=== PATIENT | female | born 1985 | race Caucasian/White ===

== ENCOUNTER 2019-10-21 16:06 | Emergency (ER) | payer OTHER, SELFPAY ==
--- NOTE | ~2019-10-21 | CT_ITS ---
EXAMINATION: CT brain wo con INDICATION: Dizziness and headache COMPARISON: None TECHNIQUE: Standard unenhanced head CT. The dose-length product (DLP) was 681.00 mGy-cm. The mA was a djusted according to patient size. Iterative reconstruction technique was employed. FINDINGS: There is no intracranial hemorrhage, acute infarction, or abnormal mass lesion. The ventric les are normal. There is no abnormal mass effect or midline shift. The barrett-white matter differentiat ion is normal. The basal cisterns are patent. The orbits are normal. The paranasal sinuses, mastoids and calvarium are normal. IMPRESSION: 1. No acute intracranial abnormality. Reviewed, dictated and finalized at location A.
[2019-10-21 16:08] VITALS: PULSE 102; RESP 14; TEMP 36; O2SAT 99
--- NOTE | 2019-10-21 16:09 | ED.DIZZY ---
HPI - Dizziness General Chief Complaint: Dizziness Stated Complaint: lightheaded Time Seen by Provider: 10/21/19 16:09 Source: patient Mode of arrival: ambulatory Limitations: no limitations History of Present Illness HPI Narrative: Patient is a 34-year-old female with a history of asthma, migraine headaches who presents for evaluation of various complaints. Patient reports migraine headache, intermittent chest tightness although none today, intermittent abdominal discomfort, although none today, nausea, and lightheadedness/dizziness with standing. Patient states that every time she stands up suddenly she feels as if she is going to pass out. She denies any actual syncope or loss of consciousness. She reports lately she has been diaphoretic and feeling weak. Patient attempted to make an appointment with her primary care physician, she does have follow-up tomorrow afternoon with her PCP. Patient denies dysuria or hematuria. No new medications. No recent travel. No leg swelling, calf pain, recent surgery or immobility. Related Data Allergies Allergy/AdvReac Type Severity Reaction Status Date / Time amoxicillin Allergy Unknown Anaphylactic Verified 10/21/19 16:11 Shock Penicillins Allergy Unknown Anaphylaxis Verified 10/21/19 16:11 Review of Systems Review of Systems: Narrative: CONSTITUTIONAL: Denies fever, chills, reports being diaphoretic EYES: Denies visual changes, redness, or discharge. ENT: Denies rhinorrhea, congestion, sore throat, or otalgia. CARDIOVASCULAR: Denies current chest pain, palpitations or edema RESPIRATORY: Denies cough or dyspnea. GASTROINTESTINAL: Denies current abdominal pain, reports intermittent abdominal cramping, reports nausea without vomiting GENITOURINARY: Denies dysuria or hematuria. SKIN: Denies rash or itching. MUSCULOSKELETAL: Denies back pain, joint pain, or myalgia. NEUROLOGIC: Reports mild headache, denies numbness, or weakness. Reports chronic pain in her left lower extremity due to crush injury. PSYCHIATRIC: Reports anxiety and depression PMF Past Medical History Medical History (Updated 10/21/19 @ 18:04 by Oliva Hogue MD) Asthma Migraine Surgical History Surgical History (Updated 10/21/19 @ 16:20 by Oliva Hogue MD) H/O bilateral breast reduction surgery H/O spinal fusion Family History Family History (Updated 09/07/11 @ 14:40 by DOCTOR UNKNOWN) Other Diabetes mellitus Social History Social History Smoking end date: 04/01/11 Alcohol intake: never Gender identity (if verbalized by the patient): Female Exam Narrative: Exam Narrative: GENERAL: Awake, alert, conversant HEAD: Normocephalic, atraumatic. EYES: PERRLA and EOMI. ENT: Nares clear, no rhinorrhea or epistaxis. Mucous membranes moist. NECK: Supple. CHEST: No respiratory distress, breathing even and non labored HEART: Regular rate, sinus rhythm ABDOMEN: Obese, non distended, non tender EXTREMITIES: Normal range of motion. No edema. SKIN: Warm, dry, no rash. NEURO:No focal deficits. Alert and oriented x3. Finger to nose intact bilaterally. EOMs intact without nystagmus. No facial droop/asymmetry noted bilaterally. Grimace intact. Intact sensation in face. Hearing intact bilaterally. Shoulder shrug intact. Strength 5/5 bilateral upper extremities. Strength 5/5 bilateral lower extremities. Reflexes 2+ patellar. Heel to rodríguez intact bilaterally. Ambulatory exam deferred. Course Vital Signs Vital signs: Vital Signs Temperature 36.0 C L 10/21/19 16:08 Pulse Rate 102 H 10/21/19 16:08 Respiratory Rate 14 10/21/19 16:08 Pulse Oximetry 99 10/21/19 16:08 Temperature 36.0 C L 10/21/19 16:08 Pulse Rate 102 H 10/21/19 16:08 Respiratory Rate 14 10/21/19 16:08 Pulse Oximetry 99 10/21/19 16:08 MDM - Dizziness MDM Narrative Medical decision making narrative: The patient was evaluated for dizziness. Based on neurological assessment and clinical symptoms, patient'
--- NOTE | 2019-10-21 16:12 | ECG_ITS ---
Measurements Intervals [place] Rate: 94 P: 56 ID: [id number] QRS: 49 QRSD: 81 T: 28 QT: 332 QTc: 416 Interpretive Statements SINUS RHYTHM BASELINE ARTIFACT- III, AVL, AVF NORMAL ECG Electronically Signed On 10-22-2019 8:00:14 CDT by Maximus Reilly D.O.
[2019-10-21] MEDS: SODIUM CHLORIDE 0.9% IV 1,000 ML 999 ML IV CONT (16:38)
[2019-10-21] MEDS: MECLIZINE HCL 25 MG TABLET PO (16:38)
[2019-10-21 16:41] LABS: Basophils Absolute Auto 0.1 K/mm3 (0.0-0.1); Basophils Percent Auto 0.6 % (0.2-1.2); Eosinophils Absolute Auto 0.2 K/mm3 (0-0.3); Eosinophils Percent Auto 1.8 % (0-4.4); Hematocrit 41.3 % (37.0-47.0); Hemoglobin 13.6 g/dL (12.0-15.0); Immature Granulocyte Absolute 0.02 K/mm3 (0.00-0.031); Immature Granulocyte Percent A 0.2 % (0-0.5); Lymphocytes Absolute Auto 2.75 K/mm3 (0.9-3.2); Lymphocytes Percent Auto 29.6 % (18.3-44.2); Mean Corpuscular HGB Conc 32.9 g/dl (32-36); Mean Corpuscular Hemoglobin 28.4 pg (26-34); Mean Corpuscular Volume 86.2 fl (80-100); Mean Platelet Volume 9.2 fl (7.4-10.4); Monocytes Absolute Auto 0.8 K/mm3 (0.1-0.6); Monocytes Percent Auto 8.1 % (2.6-8.5); Neutrophils Absolute Auto 5.5 K/mm3 (1.3-6.7); Neutrophils Percent Auto 59.7 % (45.5-73.1); Platelet Count Result 395 k/mm3 (150-375); Red Blood Count 4.79 M/mm3 (4.2-5.4); Red Cell Distribution Width 13.5 % (11.5-14.5); White Blood Count 9.3 K/mm3 (4.5-10.0)
[2019-10-21 16:51] LABS: Anion Gap 13.4 mmol/L (7-16); Blood Urea Nitrogen 20 mg/dL (7-17); Calcium 9.3 mg/dL (8.4-10.2); Carbon Dioxide 26 mmol/L (22-30); Chloride 104 mmol/L (98-107); Estimated CRCL calculation 159 ml/min; Estimated Glomerular Filt Rate > 60; Glucose 95 mg/dL (65-105); Potassium 4.4 mmol/L (3.4-5.0); Sodium 139 mmol/L (137-145)
[2019-10-21 17:02] LABS: Troponin I < 0.012 ng/mL (0.000-0.034)
[2019-10-21 17:05] LABS: INR 0.9; Partial Thromboplastin Time 25.2 SECONDS (22.3-36.8)
[2019-10-21 17:08] LABS: D Dimer 0.44 ug/mL (<0.48)
[2019-10-21 17:15] VITALS: BP 157/110; PULSE 96; RESP 20; O2SAT 99
[2019-10-21 17:23] LABS: Add Urine Microscopic? YES; Appearance Urine Cloudy (Clear); Bacteria Urine Trace /hpf; Bilirubin Urine Negative (Negative); Blood Urine Negative (Negative); Color Urine Yellow (Yellow); Glucose Urine UA Negative (Negative); Ketones Urine Negative (Negative); Leukocyte Esterase Ur Trace LEU/UL (Negative); Mucus Urine Rare /lpf; Nitrate Urine Negative (Negative); Protein Urine Negative (Negative); RBC Urine 0-2 /hpf (0-2); Specific Grav Ur 1.015 (1.001-1.035); Squamous Epithelial Cell Urine Few /hpf (Few); Urobilinogen Urine Negative mg/dL (<2.0)
[2019-10-21] MEDS: diphenhydrAMINE HCl INJ 50 MG/ML VIAL 25 MG IV PUSH (17:38)
[2019-10-21] MEDS: METOCLOPRAMIDE HCL INJ 10 MG/2 ML VIAL IV PUSH (17:38)
[2019-10-21] MEDS: KETOROLAC 15 MG/ML VIAL (*BKC) IV PUSH (17:39)
[2019-10-21 18:13] VITALS: BP 141/93; PULSE 88; RESP 20; O2SAT 99
== END 2019-10-21 18:14 | disposition home or self-care (01) ==
PROVIDERS: Emergency Provider Emergency Medicine; PCP Nurse Practitioner Adult Health
DX: G43.009 Migraine without aura, not intractable, without status migrainosus (principal)
CPT/HCPCS: 36415; 70450; 80048; 81001; 84484; 85025; 85380; 85610; 85730; 93005; 96361; 96374; 96375; 99284; A9270; J0131; J1100; J1200; J1885; J2765; J7030

== ENCOUNTER 2019-11-05 17:03 | Emergency (ER) | payer OTHER, SELFPAY ==
--- NOTE | ~2019-11-05 | XR_ITS ---
EXAMINATION: XR chest 2V EXAM DATE: 11/05/2019 17:34 INDICATION: Mid chest pain, dizziness, blurry vision, hypertension. TECHNIQUE: Frontal and lateral projections of the chest obtained and reviewed. There is no prior margo dy for comparison. FINDINGS: The lungs are clear. There are no pleural effusions. The cardiomediastinal silhouette is within normal limits. There is no pneumothorax suspected. The bones and soft tissues are unremarkab le. There are cholecystectomy clips. IMPRESSION: Normal chest x-ray exam. Reviewed, dictated and finalized at location A. IMPRESSION: Normal chest x-ray exam.
[2019-11-05 16:59] VITALS: BP 147/83; PULSE 108; RESP 26; TEMP 36.6; O2SAT 99
--- NOTE | 2019-11-05 17:16 | ECG_ITS ---
Measurements Intervals [place] Rate: 106 P: 17 [place]: 159 QRS: 34 QRSD: 76 T: -4 QT: 282 QTc: 375 Interpretive Statements SINUS TACHYCARDIA NONSPECIFIC T-WAVE ABNORMALITY- ANTEROLAT/INF LEADS ABNORMAL ECG Electronically Signed On 11-05-2019 21:21:24 CDT by Maximus Reilly D.O.
--- NOTE | 2019-11-05 17:24 | PC.NURSE ---
Pt to xray
[2019-11-05 18:00] LABS: Basophils Absolute Auto 0.1 K/mm3 (0.0-0.1); Basophils Percent Auto 0.5 % (0.2-1.2); Eosinophils Absolute Auto 0.1 K/mm3 (0-0.3); Eosinophils Percent Auto 1.1 % (0-4.4); Hematocrit 37.9 % (37.0-47.0); Hemoglobin 12.6 g/dL (12.0-15.0); Immature Granulocyte Absolute 0.04 K/mm3 (0.00-0.031); Immature Granulocyte Percent A 0.3 % (0-0.5); Lymphocytes Percent Auto 26.8 % (18.3-44.2); Mean Corpuscular HGB Conc 33.2 g/dl (32-36); Mean Corpuscular Hemoglobin 28.5 pg (26-34); Mean Corpuscular Volume 85.7 fl (80-100); Mean Platelet Volume 9.3 fl (7.4-10.4); Monocytes Absolute Auto 0.7 K/mm3 (0.1-0.6); Monocytes Percent Auto 5.6 % (2.6-8.5); Neutrophils Absolute Auto 7.8 K/mm3 (1.3-6.7); Neutrophils Percent Auto 65.7 % (45.5-73.1); Platelet Count Result 378 k/mm3 (150-375); Red Blood Count 4.42 M/mm3 (4.2-5.4); Red Cell Distribution Width 13.6 % (11.5-14.5); White Blood Count 11.9 K/mm3 (4.5-10.0)
[2019-11-05 18:09] LABS: INR 1.1; Prothrombin Time 13.6 Seconds (11.1-14.7)
[2019-11-05 18:10] LABS: Partial Thromboplastin Time 25.4 SECONDS (22.3-36.8)
[2019-11-05 18:12] LABS: Blood Urea Nitrogen 26 mg/dL (7-17); Calcium 9.4 mg/dL (8.4-10.2); Carbon Dioxide 26 mmol/L (22-30); Chloride 102 mmol/L (98-107); Estimated CRCL calculation 136 ml/min; Estimated Glomerular Filt Rate > 60; Glucose 93 mg/dL (65-105); Sodium 136 mmol/L (137-145)
[2019-11-05 18:24] LABS: Troponin I < 0.012 ng/mL (0.000-0.034)
[2019-11-05 18:46] VITALS: BP 126/81; PULSE 96; RESP 15; O2SAT 99
--- NOTE | 2019-11-05 18:53 | PC.NURSE ---
Spoke with EDP about seeing patient due to time in ED without having EDP sign up.
[2019-11-05 19:19] LABS: D Dimer 0.37 ug/mL (<0.48)
--- NOTE | 2019-11-05 19:38 | ED.GENADULT ---
HPI - General Adult General Chief complaint: Chest Pain Stated complaint: CP Time Seen by Provider: 11/05/19 18:52 Source: patient History of Present Illness HPI narrative: Patient is a 34 y/o female complaining of left sided chest pain starting approximately 10-11 hours ago. She describes her chest pain as sharp with radiation to her back. She rates her pain as 5/10. She states that Nitro helped her pain slightly. She has no SOB, cough or fever. She has some bilateral frontal headache starting 8 hours ago. Related Data Home Medications Medication Instructions Recorded Confirmed amitriptyline 11/05/19 atorvastatin 10 mg PO HS 11/05/19 citalopram mg 11/05/19 ergocalciferol (vitamin D2) 11/05/19 lisinopril 20 mg PO DAILY 11/05/19 methocarbamol 750 mg PO TID 11/05/19 naproxen 500 mg PO BID PRN 11/05/19 ondansetron 4 mg PO Q8H 11/05/19 phentermine 37.5 mg PO DAILY 11/05/19 trazodone 50 mg PO HS 11/05/19 Allergies Allergy/AdvReac Type Severity Reaction Status Date / Time amoxicillin Allergy Unknown Anaphylactic Verified 11/05/19 17:06 Shock Penicillins Allergy Unknown Anaphylaxis Verified 11/05/19 17:06 Review of Systems Constitutional: Constitutional: Denies chills, Denies fever(s), Reports headache(s) and Denies weakness Eyes: Eyes: Reports blurry vision ENT: Reports headache(s) and Denies neck pain Cardiovascular: Cardiovascular: Reports chest pain and Denies dyspnea Respiratory: Respiratory: Denies cough and Denies dyspnea Gastrointestinal: Gastrointestinal: Denies abdominal pain, Denies diarrhea, Denies nausea and Denies vomiting Genitourinary: Genitourinary: Denies hematuria and Denies dysuria Musculoskeletal: Musculoskeletal: Denies back pain and Denies neck pain Neurologic: Reports headache(s) and Denies weakness PMFSH Past Medical History Medical History Asthma Migraine Surgical History Surgical History H/O bilateral breast reduction surgery H/O spinal fusion Family History Family History Other Diabetes mellitus Social History Social History Smoking end date: 04/01/11 Alcohol intake: never Gender identity (if verbalized by the patient): Female Exam Const: General: no acute distress and well developed Orientation/consciousness: oriented to person, oriented to place, oriented to time and patient oriented x3 HENMT: Head: normocephalic Ears: external ears normal General nose exam: Normal external nose present Eyes: General: appearance normal, both eyes and all related structures Conjunctivae: conjunctivae normal Neck: Neck: normal visual inspection and full ROM Chest: Chest palpation & inspection: normal inspection of the chest and no tenderness Resp: Effort & Inspection: normal respiratory effort Auscultation: clear to auscultation bilaterally Cardio: Rate: regular rate Rhythm: regular rhythm GI: GI Palp: No abdominal tenderness and Yes Soft to palpation Skin: General skin exam: normal color and turgor normal Neuro: General: oriented to person, oriented to place, oriented to time and patient oriented x3 Cranial nerves: Yes CN's II-XII intact bilaterally Cognition (Neuro): normal cognition Speech: normal speech Motor exam (neuro): 5/5 motor strength present throughout Sensory Exam: normal sensation Coordination: [id number] test normal and [id number] test normal Extrem: General: normal to inspection, full ROM and no pedal edema Psych: Appearance: grossly normal Mental Status: mental status grossly normal Affect: normal affect Course Reevaluation(s) Reevaluation #1: Rechecked. Chest pain and headache has both improved. Date: 11/05/19 Vital Signs Vital signs: Vital Signs Temperature 36.6 C 11/05/19 16:59 Pulse Rate 108 H 0
[2019-11-05] MEDS: diphenhydrAMINE HCl INJ 50 MG/ML VIAL 25 MG IV PUSH (19:48)
[2019-11-05] MEDS: METOCLOPRAMIDE HCL INJ 10 MG/2 ML VIAL IV PUSH (19:48)
[2019-11-05 20:44] LABS: Troponin I < 0.012 ng/mL (0.000-0.034)
[2019-11-05 20:59] LABS: Add Urine Microscopic? YES; Appearance Urine Cloudy (Clear); Bacteria Urine 2+ /hpf; Bilirubin Urine 1+ (Negative); Blood Urine Negative (Negative); Color Urine Yellow (Yellow); Glucose Urine UA Negative (Negative); Ketones Urine Negative (Negative); Leukocyte Esterase Ur Negative LEU/UL (Negative); Mucus Urine Rare /lpf; Nitrate Urine Negative (Negative); Protein Urine Negative (Negative); Specific Grav Ur 1.032 (1.001-1.035); Squamous Epithelial Cell Urine Many /hpf (Few); Urobilinogen Urine Negative mg/dL (<2.0); WBC Urine 0-3 /hpf
[2019-11-05 21:24] VITALS: BP 132/76; PULSE 92; RESP 13; O2SAT 100
[2019-11-05] MEDS: KETOROLAC 30 MG/ML VIAL (*BKC) IV PUSH (22:17)
[2019-11-05 22:20] VITALS: BP 162/89; PULSE 88; O2SAT 98
[2019-11-05 23:22] VITALS: BP 169/87; PULSE 93; RESP 12; O2SAT 100
== END 2019-11-05 23:23 | disposition home or self-care (01) ==
PROVIDERS: Emergency Medicine; Emergency Provider Emergency Medicine; PCP Nurse Practitioner Adult Health
DX: R07.9 Chest pain, unspecified (principal); I10 Essential (primary) hypertension; R51 Headache; J45.909 Unspecified asthma, uncomplicated; Z98.1 Arthrodesis status; R00.0 Tachycardia, unspecified; R94.31 Abnormal electrocardiogram [ECG] [EKG]
CPT/HCPCS: 36415; 71046; 80048; 81001; 81025; 84484; 85025; 85380; 85610; 85730; 93005; 96374; 96375; 99284; J1200; J1885; J2765

== ENCOUNTER 2020-01-15 18:18 | Inpatient (IN) | payer OTHER, SELFPAY ==
[2020-01-15] VITALS (17 sets, daily range): BP systolic 125–153; BP diastolic 72–86; PULSE 89–119; RESP 17–24; TEMP 36.3–37.1; O2SAT 97–100; BMI 45.3
--- NOTE | ~2020-01-15 | CT_ITS ---
EXAMINATION: CT abdomen pelvis w con EXAM DATE: 01/15/2020 21:07 INDICATION: Low abdominal pain with vaginal bleeding. Postoperative, hysterectomy. TECHNIQUE: Spiral CT of the abdomen and pelvis was performed following intravenous injection of 100 m L Omnipaque 350. Axial, coronal and sagittal images were reviewed. The dose-length product (DLP) fo r this examination was 1678.71 mGy-cm. The exposure was tailored according to patient size (auto mA exposure control), and iterative reconstruction (ASIR) was used as additional dose reduction techniqu e. There is no prior study for comparison. FINDINGS: In the pelvis, hysterectomy bed there is complex fluid collection with air-fluid level willie uring 14 cm in diameter. Portions of this insinuate higher up into the abdomen and also have organize d appearing wall. Appearance is most consistent with abscess. Would be accessible for percutaneous d rainage. There is hepatic steatosis without suspicious focal lesion identified. Spleen, adrenal glands, pancre as are unremarkable. Gallbladder is unremarkable. No biliary obstruction. Portal and splenic veins are patent. Kidneys enhance symmetrically. There is no hydronephrosis. There is no retroperiton eal or pelvic lymphadenopathy. The appendix is not positively visualized. There is no pericecal inflammatory change to suggest appe ndicitis. The stomach and small bowel are unremarkable. There is expected amount of colonic stool. No free intraperitoneal gas. The heart is normal in size. There are no pericardial or pleural e ffusions. There is linear bibasilar subsegmental atelectasis. There are no osteoblastic or osteolyt ic lesions identified. Surgical changes L5-S1. IMPRESSION: Large pelvic complex fluid collection with additional regions extending into the abdomen, appearance consistent with abscess. Recommend surgical consult. Reviewed, dictated and finalized at location A. IMPRESSION: Large pelvic complex fluid collection with additional regions exten ding into the abdomen, appearance consistent with abscess. Recommend surgical c onsult.
--- NOTE | ~2020-01-15 | CT_ITS ---
EXAMINATION: CT guide absc cath placement DATE: 01/16/2020 11:31 INDICATION: Pelvic abscess. TECHNIQUE: The procedure including the risks, benefits, and alternatives was discussed with the patie nt. Risks discussed included bleeding and infection. The patient understood the risks and benefits an d agreed to proceed. The skin overlying the abdomen was prepped and draped in usual sterile fashion. Anesthetic was administered with 1% lidocaine subcutaneously. An 18 gauge trochar needle was inserte d into the pelvic abscess with CT guidance. The needle was exchanged over a wire for 6 Luxembourger, 8 Fren ch, and 10 Luxembourger dilators and then for a 10 Luxembourger pigtail catheter. The catheter was stitched to th e skin, and a sterile dressing was applied. The mA was adjusted according to patient size. Iterative reconstruction technique was employed. The dose-length product was 249.20 mGy-cm. There were no immed iate complications. FINDINGS: CT images demonstrate the catheter within the fluid collection. 15 mL fluid was aspirated f or testing. IMPRESSION: 1. Successful CT-guided pelvic abscess drainage. 2. 15 mL opaque, red, foul-smelling fluid was sent for aerobic and anaerobic cultures. Reviewed, dictated and finalized at location A. IMPRESSION: 1. Successful CT-guided pelvic abscess drainage. 2. 15 mL opaque, red, foul-smelling fluid was sent for aerobic and anaerobic cu ltures.
--- NOTE | ~2020-01-15 | US_ITS ---
EXAMINATION: US_ABSCYSTIMG_US DATE: 01/21/2020 12:26 INDICATION: Right abdominal wall subcutaneous abscess. TECHNIQUE: The procedure including the risks, benefits, and alternatives was discussed with the patie nt. Risks discussed included bleeding and infection. The patient understood the risks and agreed to p roceed. The skin overlying the right abdomen was prepped and draped in usual sterile fashion. Anesth etic was administered with 1% lidocaine subcutaneously. An 18 gauge spinal needle was then used to a spirate the abscess under continuous sonographic guidance. The entry site was cleaned and dressed. T here were no immediate complications. FINDINGS: Ultrasound images demonstrate the needle in a 3.9 x 1.0 cm hypoechoic subcutaneous mass in the right abdomen, consistent with abscess. IMPRESSION: 1. Ultrasound-guided aspiration of a small abscess in the subcutaneous fat of right anterior abdomina l wall yielding 1 mL opaque, vela-red fluid. The fluid was sent for aerobic and anaerobic cultures. Reviewed, dictated and finalized at location A. IMPRESSION: 1. Ultrasound-guided aspiration of a small abscess in the subcutaneous fat of r ight anterior abdominal wall yielding 1 mL opaque, vela-red fluid. The fluid was sent for aerobic and anaerobic cultures.
--- NOTE | ~2020-01-15 | CT_ITS ---
EXAMINATION: CT abdomen pelvis w con DATE: 01/20/2020 08:04 INDICATION: Worsening right lower quadrant abdominal pain. Known pelvic abscess. TECHNIQUE: Computed tomography (CT) of the abdomen and pelvis was performed with 100 cc Omnipaque 350 intravenous contrast. The dose-length product was 1695.57 mGy-cm. Automated exposure control and ite rative reconstruction technique were employed. COMPARISON: CT dated 01/15/2020 FINDINGS: New small right pleural effusion. There is bibasilar atelectasis heart size normal. Fatty i nfiltration of the liver. The spleen, pancreas, adrenal glands and kidneys are unremarkable. Nonobstr uctive bowel gas pattern. In the pelvis there is a complex fluid collection measuring 9.6 x 7.5 cm co mpared with 14.5 x 10.2 cm on prior examination. There is a percutaneous drainage catheter in the flu id collection. This irregular fluid collection extends superiorly with fingerlike projections. There is moderate infiltration of the subcutaneous fat is well with interval development of fluid collectio n in the anterior abdominal wall measuring 5.1 x 2.2 cm, image 118, likely abscess. IMPRESSION: 1. Improved pelvic abscess postdrainage placement now measuring 9.6 x 7.5 cm transverse dimension. 2: No small abscess anterior abdominal wall paracentral to the right measuring 5.1 x 2.2 cm. 3: New small right pleural effusion. Bibasilar atelectasis. Reviewed, dictated and finalized at location B. IMPRESSION: 1. Improved pelvic abscess postdrainage placement now measuring 9.6 x 7.5 cm tr ansverse dimension. 2: No small abscess anterior abdominal wall paracentral to the right measuring 5.1 x 2.2 cm. 3: New small right pleural effusion. Bibasilar atelectasis.
[2020-01-15 18:55] LABS: Hematocrit 24.9 % (37.0-47.0); Hemoglobin 8.1 g/dL (12.0-15.0); Mean Corpuscular HGB Conc 32.5 g/dl (32-36); Mean Corpuscular Hemoglobin 28.1 pg (26-34); Mean Corpuscular Volume 86.5 fl (80-100); Mean Platelet Volume 9.4 fl (7.4-10.4); Platelet Count Result 851 k/mm3 (150-375); Red Blood Count 2.88 M/mm3 (4.2-5.4); Red Cell Distribution Width 14.8 % (11.5-14.5); White Blood Count 23.1 K/mm3 (4.5-10.0)
--- NOTE | 2020-01-15 19:15 | ED.ABDPAIN ---
HPI - Abdominal Pain General Chief Complaint: Vaginal Bleeding Stated Complaint: VAGINAL BLEEDING, POST HYSTERECTOMY Time Seen by Provider: 01/15/20 19:05 Source: patient and family Mode of arrival: ambulatory Limitations: no limitations History of Present Illness HPI narrative: Patient is a 34-year-old female with a history of recent hysterectomy, approximately 2 weeks ago, performed by Dr. Cervantes, who presents for evaluation of vaginal bleeding, foul-smelling discharge, generalized abdominal pain. Patient states she had a large gush of malodorous fluid, vaginal bleeding this afternoon around 4 PM. Patient states she has some general malaise, no focal weakness, no severe abdominal pain, reports some generalized discomfort in the lower abdomen. Patient denies fever, chills, rhinorrhea, cough, chest pain or shortness of breath. No nausea or vomiting. Patient states she had been doing well post surgery up until today. Incisions are healing well. She denies any dysuria. Related Data Home Medications Medication Instructions Recorded Confirmed amitriptyline 11/05/19 atorvastatin 10 mg PO HS 11/05/19 citalopram mg 11/05/19 ergocalciferol (vitamin D2) 11/05/19 lisinopril 20 mg PO DAILY 11/05/19 methocarbamol 750 mg PO TID 11/05/19 naproxen 500 mg PO BID PRN 11/05/19 ondansetron 4 mg PO Q8H 11/05/19 phentermine 37.5 mg PO DAILY 11/05/19 trazodone 50 mg PO HS 11/05/19 Allergies Allergy/AdvReac Type Severity Reaction Status Date / Time amoxicillin Allergy Unknown Anaphylactic Verified 11/05/19 17:06 Shock Penicillins Allergy Unknown Anaphylaxis Verified 11/05/19 17:06 Review of Systems Review of Systems: Narrative: CONSTITUTIONAL: Denies fever, chills, or sweats. EYES: Denies visual changes ENT: Denies rhinorrhea, congestion, sore throat, or otalgia. CARDIOVASCULAR: Denies chest pain, palpitations, or edema. RESPIRATORY: Denies cough or dyspnea. GASTROINTESTINAL: Reports generalized lower abdominal pain GENITOURINARY: Denies dysuria or hematuria. Reports vaginal bleeding and malodorous discharge SKIN: Denies rash or itching. MUSCULOSKELETAL: Denies back pain NEUROLOGIC: Denies headache, numbness, or weakness. [facility] Past Medical History Medical History (Updated 01/15/20 @ 21:35 by Oliva Hogue MD) Asthma Migraine Surgical History Surgical History (Updated 01/15/20 @ 19:42 by Oliva Hogue MD) H/O bilateral breast reduction surgery H/O spinal fusion History of hysterectomy Family History Family History Other Diabetes mellitus Social History Social History Smoking end date: 04/01/11 Alcohol intake: never Gender identity (if verbalized by the patient): Female Exam Narrative: Exam Narrative: GENERAL: Awake, alert, conversant HEAD: Normocephalic, atraumatic. EYES: PERRLA and EOMI. ENT: Nares clear, no rhinorrhea or epistaxis. Mucous membranes moist. NECK: Supple. CHEST: No respiratory distress, breathing even and non labored HEART: Regular rate, sinus rhythm ABDOMEN: Obese, non distended, incision sites clean, dry, intact mild tenderness in the lower abdomen, no distention, no rebound, no guarding, nonrigid Pelvic: Labia majora and minora normal without lesions. Vagina with blood, no brisk bleeding or large bloot clot. Malodorus smell. No purulent discharge identified on exam. EXTREMITIES: Normal range of motion. No edema. SKIN: Warm, dry, no rash. NEURO:No focal deficits. Alert and oriented x3 Course Vital Signs Vital signs: Vital Signs Temperature 36.7 C 01/15/20 18:23 Pulse Rate 118 H 01/15/20 18:23 Respiratory Rate 20 01/15/20 18:23 Blood Pressure 129/72 01/15/20 18:23 Pulse Oximetry 100 01/15/20 18:23 Temperature 36.7 C 01/15/20 18:23 Pulse Rate 113 H 01/15/20 20:45 Respiratory Rate 24 H 01/15/20 20:15 Blood Pressure 128/86 10
[2020-01-15 19:16] LABS: Band Neutrophils Percent 1 % (0-6); Monocytes Absolute Manual 1.15 K/mm3 (0.1-0.90); Monocytes Percent Manual 5 % (3-9); Neutrophils Absolute Manual 18.94 K/mm3 (1.7-7.2); Neutrophils Percent Manual 81 % (46-73); Total Cells Counted 100
[2020-01-15 19:17] LABS: Hypochromasia 1+ (NORMAL); Platelet Estimate Increased (Adequate)
--- NOTE | 2020-01-15 19:20 | PC.NURSE ---
patient here with vaginal bleeding after partial hysterectomy on 01/04/20. has been healing well until this afternoon. has used 4 large sized pads per patient. appears pale. denies dizziness, syncope or near syncope. SO present in room. assessments documented. labs already drawn. SL inserted. additional blood drawn. patient on media monitor. call light in reach.
[2020-01-15 19:23] LABS: INR 1.1; Prothrombin Time 13.5 Seconds (11.1-14.7)
[2020-01-15 19:24] LABS: Partial Thromboplastin Time 36.4 SECONDS (22.3-36.8)
[2020-01-15 19:53] LABS: Add Urine Microscopic? YES; Appearance Urine Cloudy (Clear); Bacteria Urine Trace /hpf; Bilirubin Urine Negative (Negative); Blood Urine 3+ (Negative); Color Urine Amber (Yellow); Glucose Urine UA Negative (Negative); Ketones Urine Negative (Negative); Leukocyte Esterase Ur 2+ LEU/UL (Negative); Mucus Urine Rare /lpf; Nitrate Urine Positive (Negative); Protein Urine 1+ mg/dL (Negative); Specific Grav Ur 1.013 (1.001-1.035); Squamous Epithelial Cell Urine Moderate /hpf (Few); Urobilinogen Urine Negative mg/dL (<2.0); WBC Clumps Urine Present /HPF; WBC Urine 51-75 /hpf
[2020-01-15 20:28] LABS: INR 1.2; Prothrombin Time 14.7 Seconds (11.1-14.7)
[2020-01-15] MEDS: metroNIDAZOLE 500 MG/ISO 100ML 500 MG/100 ML BAG 100 MG IVPB (20:35)
[2020-01-15 20:47] LABS: Lactic Acid Reflex 2.4 mmol/L (0.7-2.1)
[2020-01-15 20:48] LABS: Potassium 3.1 mmol/L (3.4-5.0)
[2020-01-15] MEDS: MORPHINE SULFATE (*CRX) 4 MG/ML INJ IV PUSH ×2 (20:50→23:20)
[2020-01-15 20:51] LABS: Alanine Aminotransferase 23 U/L (4-35); Albumin Level 3.4 g/dL (3.5-5.1); Alkaline Phosphatase 145 U/L (38-126); Anion Gap 11 mmol/L (8-16); Aspartate Amino Transferase 35 U/L (14-36); Bilirubin,Total 0.6 mg/dL (0.2-1.3); Blood Urea Nitrogen 24 mg/dL (7-17); Calcium 8.9 mg/dL (8.4-10.2); Carbon Dioxide 30 mmol/L (22-30); Chloride 97 mmol/L (98-107); Estimated CRCL calculation 99 ml/min; Estimated Glomerular Filt Rate > 60; Glucose 96 mg/dL (65-105); Sodium 138 mmol/L (137-145)
--- NOTE | 2020-01-15 20:57 | PC.NURSE ---
Patient being taken to CT.
[2020-01-15 21:40] LABS: Troponin I < 0.012 ng/mL (0.000-0.034)
[2020-01-15] MEDS: CLINDAMYCIN 900 MG/NS 50 ML 900 MG/50 ML PIGGYBACK 50 MG IVPB (22:07)
[2020-01-15] MEDS: AZTREONAM 1 GM in DEXTROSE 5% IN WATER 50 ML IVPB (22:07)
--- NOTE | 2020-01-15 23:30 | PC.NURSE ---
This patient, Kit Cleveland, was admitted to IMU Room 209-01 on 01/15/20 at 2252. Patient/family oriented to hospital policies and general routines including ID bracelet, bed and alarms, visiting hours, pain management, procedures, bathroom and other care routines, personal items, smoking policy, room service/diet, and visiting hours. Information on how to activate the Rapid Response Team has been discussed. Patient/Family are encouraged to report perceived risks to care and to ask questions if they do not understand what they are told or what they should do.
[2020-01-15 23:35] LABS: Reflex Lactic Acid Yes or No Add Lactic
[2020-01-16] VITALS (26 sets, daily range): BP systolic 107–150; BP diastolic 56–95; PULSE 90–119; RESP 17–24; TEMP 36.2–37.3; O2SAT 95–100
[2020-01-16] MEDS: SODIUM CHLORIDE 0.9% IV 1,000 ML 125 ML IV CONT ×2 (00:22→13:46)
[2020-01-16] MEDS: metroNIDAZOLE 500 MG/ISO 100ML 500 MG/100 ML BAG 100 MG IVPB ×3 (00:28→17:35)
[2020-01-16 00:35] LABS: Lactic Acid 2.7 mmol/L (0.7-2.1)
[2020-01-16] MEDS: MORPHINE SULFATE (*CRX) 4 MG/ML INJ IV PUSH ×2 (01:31→03:48)
--- NOTE | 2020-01-16 02:59 | PM.IMCN ---
Assessment and Plan Assessment and plan (1) Postoperative abscess: Code(s): T81.49XA - Infection following a procedure, other surgical site, initial encounter Status: Acute Assessment and Plan: Antibiotics per OBGYN. Cultures are pending. Her but her vital signs are stable at this time. Her lactic was mildly elevated. Will recheck again this morning. She has IV fluids going at this time. Patient is NPO for possible surgery for the abscess later on today. (2) HTN (hypertension) with goal to be determined: Code(s): I10 - Essential (primary) hypertension Status: Chronic Assessment and Plan: Her blood pressure is 107/65 at this time. Holding hydrochlorothiazide and lisinopril. Re-evaluate tomorrow or later on today. (3) Hyperlipidemia: Code(s): E78.5 - Hyperlipidemia, unspecified Status: Chronic Assessment and Plan: I am holding her Atorvastatin at this time. (4) Depression with anxiety: Code(s): F41.8 - Other specified anxiety disorders Status: Chronic Assessment and Plan: Continue with amitriptyline and citalopram. P.r.n. Ativan. (5) Insomnia: Code(s): G47.00 - Insomnia, unspecified Status: Chronic Assessment and Plan: She takes amitriptyline at night to help her sleep. She also has p.r.n. Ativan. (6) Anemia: Code(s): D64.9 - Anemia, unspecified Status: Acute Assessment and Plan: she has been typed and cross- Matched. It looks like in October her hemoglobin was 12.6 now she is 8.1. Transfuse when appropriate. repeat her CBC her shortly. (7) Hypokalemia: Code(s): E87.6 - Hypokalemia Status: Acute Assessment and Plan: Replace potassium as needed. I did order dose for her. HPI Data of Consult Consult date: 01/16/20 Requesting Physician: Kirsten Cervantes MD Primary Care Provider: Natalia Rodrigues, INTEL ANALYST Consult Narrative Narrative: Kit Cleveland is a 34 year old female Who had a hysterectomy approximately 2 weeks ago. The patient stated that she started to notice a foul smell yesterday. She otherwise she had had any problems. Her incisions on her abdomen are without any drainage in the ER well approximated and healing. The patient stated that she sat on the toilet this afternoon when she felt something inside of her pop like a bubble and had all this foul-smelling drainage James out. Patient stated that the drainage has been leaking down her leg. She has had some general malaise but no focal weakness she has been having some abdominal pain. She said when the drainage for started she felt like someone stabbed her deep inside of her. Patient is having some mild discomfort. So she came to the emergency room to be evaluated. Her OBGYN was consulted. We are asked to consult the patient due to possible sepsis. She is afebrile and her heart rate and was in the 1 teens. So she is admitted to the step-down unit IMU. She was given 30 mils per kg fluid bolus for the sepsis. Blood cultures were obtained. She was not hypotensive. The patient was given aztreonam and clindamycin. It looks like she was also given Levaquin and Flagyl in the emergency room as well. She was given morphine for the discomfort. She was also given doxycycline there was no signs and symptoms of hemorrhagic shock. Her OBGYN was notified Dr. Cervantes and the patient was to be made NPO for possible surgery tomorrow I was consulted to monitor the patient overnight her H&H was 8.1 and 24.9. Her white count 23.1. Potassium 3.1. Her lactic was 2.4 and then 2.7. Urine was positive for UTI. Although this could be a contaminant because her moderate amount of squamous epithelial cells. She was negative for Trichomonas. Patient was admitted inpatient for postop infection. Date of consult is 01/16/2020 Review of Systems Review of Systems: All systems reviewed & are unremarkable except as noted in HPI and be
[2020-01-16] MEDS: AMITRIPTYLINE HCL 25 MG TABLET 50 MG PO ×4 (03:44→20:16)
[2020-01-16] MEDS: CITALOPRAM HYDROBROMIDE 20 MG TABLET 40 MG PO ×2 (03:45→20:16)
[2020-01-16] MEDS: traZODone HCL 50 MG TABLET 100 MG PO ×2 (03:45→20:17)
[2020-01-16] MEDS: LORazepam INJ (*CRX) 2 MG/ML VIAL 0.5 MG IV PUSH (03:57)
[2020-01-16 05:20] LABS: Basophils Absolute Auto 0.1 K/mm3 (0.0-0.1); Basophils Percent Auto 0.3 % (0.2-1.2); Eosinophils Absolute Auto 0.4 K/mm3 (0-0.3); Eosinophils Percent Auto 2.1 % (0-4.4); Hematocrit 22.7 % (37.0-47.0); Hemoglobin 7.2 g/dL (12.0-15.0); Immature Granulocyte Absolute 0.39 K/mm3 (0.00-0.031); Immature Granulocyte Percent A 2.2 % (0-0.5); Lymphocytes Absolute Auto 2.02 K/mm3 (0.9-3.2); Lymphocytes Percent Auto 11.6 % (18.3-44.2); Mean Corpuscular HGB Conc 31.7 g/dl (32-36); Mean Corpuscular Hemoglobin 27.8 pg (26-34); Mean Corpuscular Volume 87.6 fl (80-100); Mean Platelet Volume 9.2 fl (7.4-10.4); Monocytes Absolute Auto 0.9 K/mm3 (0.1-0.6); Monocytes Percent Auto 4.9 % (2.6-8.5); Neutrophils Absolute Auto 13.7 K/mm3 (1.3-6.7); Neutrophils Percent Auto 78.9 % (45.5-73.1); Nucleated Red Blood Cells Perc 0.2 % (0.0-0.2); Platelet Count Result 810 k/mm3 (150-375); Red Blood Count 2.59 M/mm3 (4.2-5.4); White Blood Count 17.4 K/mm3 (4.5-10.0)
[2020-01-16 05:29] LABS: INR 1.2; Prothrombin Time 15.3 Seconds (11.1-14.7)
[2020-01-16 05:30] LABS: Partial Thromboplastin Time 39.3 SECONDS (22.3-36.8)
[2020-01-16] MEDS: AZTREONAM 1 GM in SODIUM CHLORIDE 0.9% IV 50 ML 100 ML IVPB ×3 (05:35→21:27)
[2020-01-16] MEDS: CLINDAMYCIN 900 MG/NS 50 ML 900 MG/50 ML PIGGYBACK 50 MG IVPB ×3 (05:35→21:27)
[2020-01-16 05:54] LABS: Alanine Aminotransferase 19 U/L (4-35); Alkaline Phosphatase 129 U/L (38-126); Anion Gap 7 mmol/L (8-16); Aspartate Amino Transferase 34 U/L (14-36); Bilirubin,Total 0.5 mg/dL (0.2-1.3); Blood Urea Nitrogen 16 mg/dL (7-17); Calcium 7.9 mg/dL (8.4-10.2); Carbon Dioxide 30 mmol/L (22-30); Chloride 100 mmol/L (98-107); Estimated CRCL calculation 111 ml/min; Estimated Glomerular Filt Rate > 60; Glucose 97 mg/dL (65-105); Magnesium 1.9 mg/dL (1.6-2.3); Sodium 137 mmol/L (137-145)
--- NOTE | 2020-01-16 07:50 | PM.IMPN ---
Progress Note: A&P Assessment and Plan (1) Hypokalemia: Code(s): E87.6 - Hypokalemia Status: Acute Assessment and Plan: Will replace as needed. Continue to monitor. Daily BMP. (2) Anemia: Qualifiers: Anemia type: other cause Other causes of anemia: acute posthemorrhagic Qualified Code(s): D62 - Acute posthemorrhagic anemia Code(s): D64.9 - Anemia, unspecified Status: Acute Assessment and Plan: Will transfuse as needed. Continue to monitor. H&H (3) Chronic back pain: Code(s): M54.9 - Dorsalgia, unspecified; G89.29 - Other chronic pain Status: Chronic Assessment and Plan: Pain management. (4) Hyperlipidemia: Code(s): E78.5 - Hyperlipidemia, unspecified Status: Chronic Assessment and Plan: Diet and lifestyle modifications. (5) HTN (hypertension) with goal to be determined: Code(s): I10 - Essential (primary) hypertension Status: Chronic Assessment and Plan: Continue to monitor On HZTC and Lisinopril at home. (6) Sepsis: Qualifiers: Sepsis acute organ dysfunction status: unspecified Sepsis type: sepsis due to unspecified organism Qualified Code(s): A41.9 - Sepsis, unspecified organism Code(s): A41.9 - Sepsis, unspecified organism Status: Acute Assessment and Plan: Continue Aztreonam and Clindamycin. (7) Postoperative abscess: Code(s): T81.49XA - Infection following a procedure, other surgical site, initial encounter Status: Acute Assessment and Plan: S/p IR drainage placement. Continue to monitor Subjective Date/time seen: 01/16/20 07:50 Abdominal pain. 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 Constitutional: Comments: No chills, no rigors, no fevers. Eyes: Comments: No visual changes. ENT: Comments: no ear ache, no throat pain, no nasal discharge or congestion. Cardiovascular: Comments: no chest pain, no sob, no leg swelling. Respiratory: Comments: no cough, no sputum production, no sob. Gastrointestinal: Comments: no n/v, no diarrhea, had abdominal pain. 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 Musculoskeletal: Comments: no joint swelling, no joint pain. Integumentary/Breasts: Comments: Puncture surgical abdominal wounds well healed. Neurologic: Comments: no sensory motor deficit. Hematologic/Lymphatic: Comments: No LAP Exam Narrative: Exam Narrative: Lying in bed. Const: General: cooperative, comfortable, well developed, alert, awake and ill appearing Nutritional Appearance: overweight Orientation/consciousness: patient oriented x3 HENMT: Head: normal to inspection and normocephalic Ears: hearing grossly normal bilaterally General nose exam: Normal external nose present Face and sinus: normal facial exam Mouth: Yes Normal oral and palatal mucosa present Eyes: General: appearance normal, both eyes and all related structures Pupils: Equal, round and reactive pupils present EOM: EOMs intact bilaterally Neck: Neck: full ROM, no lymphadenopathy, supple and no JVD Resp: Effort & Inspection: normal respiratory effort Auscultation: clear to auscultation bilaterally Cardio: Jugular venous distension: no JVD Palpation: normal PMI Rate: regular rate Rhythm: regular rhythm Heart sounds: S1 normal heart sound present and S2 normal heart sound present GI: Inspection: Pannus present, obesity and scar GI Palp: Yes abdominal tenderness, Yes Soft to palpation, Yes Tenderness to palpation present (GI) (lower abdomen) and Yes No hepatosplenomegaly present Auscultation: normal bowel sounds Skin: General skin exam: normal color Lesions: no l
[2020-01-16] MEDS: HYDROmorphone HCL INJ (*CRX) 1 MG/ML SYR 0.5 MG IV PUSH ×4 (09:18→19:12)
--- NOTE | 2020-01-16 09:18 | PM.IMHP ---
H&P: HPI History of Present Illness Date/Time: 01/16/20 07:44 Chief complaint: Sepsis, Post operative abscess, Anemia Narrative: Kit Cleveland is a 34 year old female who presented to the ER w/ reports of vaginal bleeding and foul smelling discharge. She underwent RA-TLH/BS/cysto on 01/04/20 due to AUB and pelvic pain and was found to have endometriosis and interstitial cystitis (pathology benign). She reports dull pelvic pain. She has decreased appetite. She has been mildly constipated and taking OTC medications. She was given a prescription for macrobid on 01/12/20 due to concerns of a UTI and has been taking that. No fever, chills, nausea, vomiting, dysuria, CP. She reports palpitations and feeling slightly dizzy and short of breath. She has continued abdominal pain, foul smelling discharge and mild vaginal bleeding. She did not sleep at all last night (normally takes multiple meds) and reports back pain. In the ER, she was found to be tachycardic (but does have a h/o tachycardia and had a full cardiac workup prior to surgery), with a leukocytosis to 23. She was afebrile, but CT scan showed a large pelvic abscess. IR has already been consulted and plans to attempt drain placement today, 01/16/20 @ 1030 Review of Systems Review of Systems: All systems reviewed & are unremarkable except as noted in HPI and below (HPI) PMFSH Past Medical History Medical History Asthma Chronic back pain Depression with anxiety History of endometriosis HTN (hypertension) with goal to be determined Hyperlipidemia Insomnia Migraine Surgical History Surgical History H/O bilateral breast reduction surgery H/O spinal fusion History of hysterectomy Family History Family History Mother Diabetes mellitus Hypothyroidism Hypertension Father Hypertension Hyperlipidemia Social History Social History Social History: the patient tells me that she quit smoking about 9 or 10 years ago. She is to Shahnaz Elliott. Her is the durable power banking attorney for healthcare. The patient desires to be a full code. 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 She has 3 foster children and 3 adopted children. No marijuana or illicit drugs. Smoking packs per day: 0.5 Smoking cigarettes per day: 10.0 Years smoked: 6 Smoking pack-years: 3.00 Smoking status: Former smoker Tobacco type: cigarettes Smoking end date: 04/01/11 Alcohol intake: never Substance use: never Substance use type: does not use Gender identity (if verbalized by the patient): Female Sexual Orientation (if Verbalized by the Patient): Lesbian, Marcos, or Homosexual Spiritual care concerns: No Meds Home Medications and Allergies Home Medications Medication Instructions Recorded Confirmed Type acetaminophen 500 mg PO Q6H PRN #30 cap 10/21/19 01/15/20 Rx amitriptyline 50 mg PO TID 11/05/19 01/15/20 History atorvastatin 10 mg PO HS 11/05/19 01/15/20 History citalopram 40 mg PO HS 11/05/19 01/15/20 History ergocalciferol (vitamin D2) 50,000 unit PO WEEKLY 11/05/19 01/15/20 History lisinopril 20 mg PO DAILY 11/05/19 01/15/20 History methocarbamol 750 mg PO TID 11/05/19 01/15/20 History ondansetron 4 mg PO Q8H PRN 11/05/19 01/15/20 History clonazepam See Rx Instructions .ROUTE .COMPLEX 01/15/20 01/15/20 History meclizine 25 mg PO BID PRN 01/15/20 01/15/20 History trazodone 100 mg PO HS 01/15/20 01/15/20 History docusate sodium [DOK] 100 mg PO DAILY 01/16/20 01/16/20 History hydrochlorothiazide 12.5 mg PO DAILY 01/16/20 01/16/20 History ibuprofen 800 mg PO Q8H PRN 01/16/20 01/16/20 History nitrofurantoin monohyd/m-cryst 100 mg PO BID 01/16/20 01/16/20 History oxycodone 5 - 10 mg PO Q4-6H PRN 01/16/20 01/16/20 History Allergie
--- NOTE | 2020-01-16 10:06 | WPDHPUPDATE1 ---
History and Physical Update Update Date/Time: 01/16/20 10:06 History and Physical has been reviewed, including an updated exam of the patient. There are NO changes in the patient's condition. Risks, benefits, and alternatives have been discussed and questions answered. Patient agrees to proceed with procedure.
[2020-01-16] MEDS: CALCIUM GLUC 1,000 MG/NS 50 ML 1,000 MG/50 ML BAG 100 MG IVPB (11:49)
[2020-01-16] MEDS: POTASSIUM PHOS,M-BASIC-D-BASIC 20 MMOL in SODIUM CHLORIDE 0.9% IV 250 ML 64 MMOL IVPB ×2 (11:56→16:09)
[2020-01-16] MEDS: metroNIDAZOLE 500 MG/ISO 100ML 500 MG/100 ML BAG 64 MG IVPB (12:01)
[2020-01-16] MEDS: TUBING, BLOOD PLUM PUMP TUBING 2 EACH XX (13:50)
[2020-01-16] MEDS: SODIUM CHLORIDE 0.9% IV 250 ML 30 ML IV CONT (16:11)
[2020-01-16] MEDS: clonazePAM (*CRX) 0.5 MG TABLET 1 MG PO (20:17)
[2020-01-17] VITALS (14 sets, daily range): BP systolic 120–147; BP diastolic 57–83; PULSE 80–114; RESP 16–22; TEMP 36.2–36.9; O2SAT 95–100
[2020-01-17] MEDS: metroNIDAZOLE 500 MG/ISO 100ML 500 MG/100 ML BAG 100 MG IVPB ×5 (00:26→23:56)
[2020-01-17] MEDS: HYDROmorphone HCL INJ (*CRX) 1 MG/ML SYR 0.5 MG IV PUSH ×5 (00:27→22:38)
[2020-01-17] MEDS: SODIUM CHLORIDE 0.9% IV 1,000 ML 125 ML IV CONT (00:30)
[2020-01-17] MEDS: AZTREONAM 1 GM in SODIUM CHLORIDE 0.9% IV 50 ML 100 ML IVPB ×3 (05:48→21:58)
[2020-01-17] MEDS: CLINDAMYCIN 900 MG/NS 50 ML 900 MG/50 ML PIGGYBACK 50 MG IVPB ×3 (05:48→22:36)
[2020-01-17 05:50] LABS: Basophils Absolute Auto 0.1 K/mm3 (0.0-0.1); Basophils Percent Auto 0.4 % (0.2-1.2); Eosinophils Absolute Auto 0.4 K/mm3 (0-0.3); Eosinophils Percent Auto 2.7 % (0-4.4); Hematocrit 27.6 % (37.0-47.0); Hemoglobin 8.9 g/dL (12.0-15.0); Immature Granulocyte Absolute 0.28 K/mm3 (0.00-0.031); Lymphocytes Absolute Auto 2.61 K/mm3 (0.9-3.2); Lymphocytes Percent Auto 18.7 % (18.3-44.2); Mean Corpuscular HGB Conc 32.2 g/dl (32-36); Mean Corpuscular Hemoglobin 27.5 pg (26-34); Mean Corpuscular Volume 85.2 fl (80-100); Mean Platelet Volume 9.2 fl (7.4-10.4); Monocytes Absolute Auto 0.9 K/mm3 (0.1-0.6); Monocytes Percent Auto 6.1 % (2.6-8.5); Neutrophils Absolute Auto 9.8 K/mm3 (1.3-6.7); Neutrophils Percent Auto 70.1 % (45.5-73.1); Nucleated Red Blood Cells Perc 0.1 % (0.0-0.2); Platelet Count Result 757 k/mm3 (150-375); Red Blood Count 3.24 M/mm3 (4.2-5.4); Red Cell Distribution Width 14.9 % (11.5-14.5)
[2020-01-17 06:13] LABS: Magnesium 1.5 mg/dL (1.6-2.3)
[2020-01-17 06:32] LABS: Anion Gap 6 mmol/L (8-16); Blood Urea Nitrogen 10 mg/dL (7-17); Calcium 7.9 mg/dL (8.4-10.2); Carbon Dioxide 30 mmol/L (22-30); Chloride 101 mmol/L (98-107); Estimated CRCL calculation 141 ml/min; Estimated Glomerular Filt Rate > 60; Glucose 102 mg/dL (65-105); Potassium 2.9 mmol/L (3.4-5.0); Sodium 137 mmol/L (137-145)
[2020-01-17] MEDS: MAGNESIUM SULF 2 GM/WATER 50ML 2 GM/50 ML BAG IVPB (08:49)
[2020-01-17] MEDS: POTASSIUM PHOS/SODIUM PHOS 250 MG TABLET PO (08:50)
[2020-01-17] MEDS: DOCUSATE SODIUM 100 MG CAPSULE PO ×2 (08:50→20:04)
[2020-01-17] MEDS: FOLIC ACID 0.4 MG TABLET PO (08:50)
[2020-01-17] MEDS: ASCORBIC ACID 500 MG TABLET PO (08:50)
[2020-01-17] MEDS: polyethylene glycoL 3350 17 GM POWD.PACK PO (08:51)
[2020-01-17] MEDS: AMITRIPTYLINE HCL 25 MG TABLET 50 MG PO ×4 (08:57→20:04)
[2020-01-17] MEDS: oxyCODONE/ACETAMINOPHEN (*CRX) 5-325 MG TABLET 1 TABLET PO ×2 (09:09→19:57)
--- NOTE | 2020-01-17 09:47 | PM.GYNPNOP ---
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 (1) Postoperative abscess: Code(s): T81.49XA - Infection following a procedure, other surgical site, initial encounter Status: Acute Assessment and Plan: - s/p IR drain placement 01/16/20-- 290cc of output since placement - Abscess cultures pending: multiple organisms growing - Pt has severe PCN allergy; continue Aztreonam 1g IV q8h + Clindamycin 900mg IV q8h (plan to administer IV antibiotics for 48 hours after pt clinically improved/resolving leukocytosis/significant change in size of abscess) - Labs daily - Electrolytes: will replace potassium, calcium, and magnesium -- per hospitalist - Leukocytosis downtrending 23 --> 17 --> 14 - Blood cultures pending: no growth to date - Pt has been afebrile since admission, will continue to monitor - Percocet 1-2 tabs q4-6hr PRN pain, dilaudid 0.5 q4h PRN breakthrough, ibuprofen 800mg TID PRN - Bowel regimen: colace 100mg BID + Miralax 17g PO daily + colace suppository PRN - Regular diet; will discontinue IV fluids - Continue home meds: trazadone 50mg qhs, clonazepam 1mg TID PRN, amitriptyline 50mg qd, citalopram 40mg qd, methocarbamol 750mg TID PRN - Will hold HTN/cholesterol meds -- hospitalist to restart when indicated (2) Anemia: Qualifiers: Anemia type: other cause Other causes of anemia: acute posthemorrhagic Qualified Code(s): D62 - Acute posthemorrhagic anemia Code(s): D64.9 - Anemia, unspecified Status: Acute Assessment and Plan: - S/p transfusion of 2 units of pRBC on 01/16/20 - Increase in hgb from 7.2 --> 8.9 (not appropriate rise, but will continue to monitor and possibly dilational from IV fluids, which will be stopped as pt is tolerating regular diet and pt is no longer having vaginal bleeding) - Will start Iron TID + folic acid + vitamin C (3) UTI (urinary tract infection): Code(s): N39.0 - Urinary tract infection, site not specified Status: Acute Assessment and Plan: - Urine culture with E. 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 She had IR drain placement yesterday and reports no issues with the drain today. She no longer has vaginal discharge or bleeding. She also received 2 units of blood yesterday. She denies any dizziness, palpitations, or shortness of breath. She reports back/muscle pains from the bed but was able to sleep. She tolerated regular diet w/o issue. She is voiding but reports dysuria. She has passed flatus, no BM yet. She has been ambulating to the bathroom and wearing SCD's in the night. She denies fever, chills, CP, SOB, N/V, dizziness, palpitations, vaginal discharge, vaginal bleeding. Reports pelvic pain and dysuria. Review of Systems Review of Systems: All systems reviewed & are unremarkable except as noted in HPI and below (HPI) Exam Const: General: cooperative, no acute distress and tired appearing Nutritional Appearance: obese Resp: Effort & Inspection: normal respiratory effort Auscultation: clear to auscultation bilaterally Cardio: Rate: regular rate Other: no pitting edema in bilateral lower extremities GI: Inspection: incision (laparoscopic incisions healing well w/o drainage or erythema) and obesity GI Palp: Yes abdominal tenderness (appropriately; improved from yesterday), Yes Soft to palpation and No Guarding due to palpation present (GI) Auscultation: normal bowel sounds Other: drain in place in the LLQ with a small amount of dark brown foul smelling fluid in bag : Other: no vaginal bleeding or discharge Skin: General skin exam: normal
[2020-01-17 11:59] LABS: Potassium 3.7 mmol/L (3.4-5.0)
[2020-01-17] MEDS: FERROUS SULFATE 324 MG TABLET PO ×2 (12:04→16:46)
[2020-01-17] MEDS: oxyCODONE/ACETAMINOPHEN (*CRX) 5-325 MG TABLET 2 TABLET PO (13:44)
--- NOTE | 2020-01-17 16:41 | PM.IMPN ---
Progress Note: A&P Assessment and Plan (1) Hypokalemia: Code(s): E87.6 - Hypokalemia Status: Acute Assessment and Plan: Will replace as needed. Continue to monitor. Daily BMP. 01/17/20 16:41 patient is a 34-year-old female status post hysterectomy 2 weeks ago on 01/14 while on the toilet patient felt foul smelling drainage from her vagina, patient presented emergency depart CT scan of abdomen and pelvis showed a large pelvic complex fluid collection with additional regions extending into the abdomen, appearance consistent with abscess. patient machine rebuilder Dr. Cervantes was notified, patient was seen by IR and drainage was placed on 01/15 and 290 cc drained, Preliminary cultures from abscess is growing gram-negative bacilli, blood culture no growth so far patient being treated Aztreonam 1g IV q8h + Clindamycin 900mg IV q8h, today patient states feeling better, drainage from a vagina has stopped pain is better denies any fever or chills, will follow-up and monitor and patient is seen by her machine rebuilder and further recommendation to follow (2) Anemia: Qualifiers: Anemia type: other cause Other causes of anemia: acute posthemorrhagic Qualified Code(s): D62 - Acute posthemorrhagic anemia Code(s): D64.9 - Anemia, unspecified Status: Acute Assessment and Plan: Will transfuse as needed. Continue to monitor. H&H (3) Chronic back pain: Code(s): M54.9 - Dorsalgia, unspecified; G89.29 - Other chronic pain Status: Chronic Assessment and Plan: Pain management. (4) Hyperlipidemia: Code(s): E78.5 - Hyperlipidemia, unspecified Status: Chronic Assessment and Plan: Diet and lifestyle modifications. (5) HTN (hypertension) with goal to be determined: Code(s): I10 - Essential (primary) hypertension Status: Chronic Assessment and Plan: Continue to monitor On HZTC and Lisinopril at home. (6) Sepsis: Qualifiers: Sepsis acute organ dysfunction status: unspecified Sepsis type: sepsis due to unspecified organism Qualified Code(s): A41.9 - Sepsis, unspecified organism Code(s): A41.9 - Sepsis, unspecified organism Status: Acute Assessment and Plan: Continue Aztreonam and Clindamycin. (7) Postoperative abscess: Code(s): T81.49XA - Infection following a procedure, other surgical site, initial encounter Status: Acute Assessment and Plan: S/p IR drainage placement. Continue to monitor Subjective Date/time seen: 01/17/20 16:41 patient is a 34-year-old female status post hysterectomy 2 weeks ago on 01/14 while on the toilet patient felt foul smelling drainage from her vagina, patient presented emergency depart CT scan of abdomen and pelvis showed a large pelvic complex fluid collection with additional regions extending into the abdomen, appearance consistent with abscess. patient machine rebuilder Dr. Cervantes was notified, patient was seen by IR and drainage was placed on 01/15 and 290 cc drained, Preliminary cultures from abscess is growing gram-negative bacilli, blood culture no growth so far patient being treated Aztreonam 1g IV q8h + Clindamycin 900mg IV q8h, today patient states feeling better, drainage from a vagina has stopped pain is better denies any fever or chills, will follow-up and monitor and patient is seen by her machine rebuilder and further recommendation to follow Review of Systems Review of Systems: All systems reviewed & are unremarkable except as noted in HPI and below Exam Narrative: Exam Narrative: morbidly obese Patient is comfortable, NAD HEENT: eyes are clear and none icteric LUNGS:CTA HEART: RR S1S2 ABD: BS+, Soft and nontender Lower extremities: no edema SKIN: nonjaundiced Neuro: grossly intact. Objective Data Vital Signs Vital Signs: Vital Signs - 24 hr 01/16/20 17:15 01/16/20 18:00 01/16/20 18:15 Temperature 97.9 F 97.8 F Pulse Rate 104
--- NOTE | 2020-01-17 17:30 | PC.NURSE ---
Received from [facility], [place] 209/ per bed.
--- NOTE | 2020-01-17 18:12 | PC.NURSE ---
This patient, Kit Cleveland, was transferred to [[id number] ] on 01/17/20 at 1740. Personal belongings sent with patient. Report given to [ Marita ]. Appropriate documentation sent with patient.
[2020-01-17] MEDS: CITALOPRAM HYDROBROMIDE 20 MG TABLET 40 MG PO (20:04)
[2020-01-17] MEDS: traZODone HCL 50 MG TABLET 100 MG PO (20:05)
[2020-01-18 01:43] VITALS: BP 122/69; PULSE 72; RESP 12; TEMP 36.9; O2SAT 98
[2020-01-18] MEDS: oxyCODONE/ACETAMINOPHEN (*CRX) 5-325 MG TABLET 2 TABLET PO ×3 (02:45→20:33)
[2020-01-18] MEDS: AZTREONAM 1 GM in SODIUM CHLORIDE 0.9% IV 50 ML 100 ML IVPB ×3 (05:10→21:27)
[2020-01-18] MEDS: CLINDAMYCIN 900 MG/NS 50 ML 900 MG/50 ML PIGGYBACK 50 MG IVPB ×3 (05:51→21:54)
[2020-01-18 06:16] LABS: Basophils Absolute Auto 0.1 K/mm3 (0.0-0.1); Basophils Percent Auto 0.4 % (0.2-1.2); Eosinophils Absolute Auto 0.4 K/mm3 (0-0.3); Eosinophils Percent Auto 2.9 % (0-4.4); Hematocrit 29.8 % (37.0-47.0); Hemoglobin 9.5 g/dL (12.0-15.0); Immature Granulocyte Absolute 0.17 K/mm3 (0.00-0.031); Immature Granulocyte Percent A 1.2 % (0-0.5); Lymphocytes Percent Auto 15.8 % (18.3-44.2); Mean Corpuscular HGB Conc 31.9 g/dl (32-36); Mean Corpuscular Hemoglobin 27.5 pg (26-34); Mean Corpuscular Volume 86.1 fl (80-100); Monocytes Absolute Auto 0.8 K/mm3 (0.1-0.6); Monocytes Percent Auto 5.8 % (2.6-8.5); Neutrophils Absolute Auto 10.3 K/mm3 (1.3-6.7); Neutrophils Percent Auto 73.9 % (45.5-73.1); Nucleated Red Blood Cells Perc 0.1 % (0.0-0.2); Platelet Count Result 797 k/mm3 (150-375); Red Blood Count 3.46 M/mm3 (4.2-5.4); Red Cell Distribution Width 15.2 % (11.5-14.5)
[2020-01-18] MEDS: metroNIDAZOLE 500 MG/ISO 100ML 500 MG/100 ML BAG 100 MG IVPB ×4 (06:42→23:03)
[2020-01-18 08:00] VITALS: BP 120/62; PULSE 90; RESP 18; TEMP 36; O2SAT 100
[2020-01-18] MEDS: AMITRIPTYLINE HCL 25 MG TABLET 50 MG PO ×4 (08:30→20:01)
[2020-01-18] MEDS: NITROFURANTOIN MONOHYD MACROCR 100 MG CAP PO ×2 (08:30→20:00)
[2020-01-18] MEDS: ASCORBIC ACID 500 MG TABLET PO (08:30)
[2020-01-18] MEDS: FOLIC ACID 0.4 MG TABLET PO (08:30)
[2020-01-18] MEDS: FERROUS SULFATE 324 MG TABLET PO ×3 (08:30→17:19)
[2020-01-18] MEDS: DOCUSATE SODIUM 100 MG CAPSULE PO ×2 (08:30→20:01)
[2020-01-18] MEDS: oxyCODONE/ACETAMINOPHEN (*CRX) 5-325 MG TABLET 1 TABLET PO (08:31)
[2020-01-18] MEDS: polyethylene glycoL 3350 17 GM POWD.PACK PO (08:31)
--- NOTE | 2020-01-18 10:17 | PM.GYNPNOP ---
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 coli; sensitive to Macrobid, resistant to Bactrim (now discontinued) - Started Macrobid 100mg BID x 7 days (complicated UTI) (2) Anemia: Qualifiers: Anemia type: other cause Other causes of anemia: acute posthemorrhagic Qualified Code(s): D62 - Acute posthemorrhagic anemia Code(s): D64.9 - Anemia, unspecified Status: Acute Assessment and Plan: - S/p transfusion of 2 units of pRBC on 01/16/20 - Increase in hgb from 7.2 --> 8.9 --> 9.5 - Continue Iron TID + folic acid + vitamin C (3) Postoperative abscess: Code(s): T81.49XA - Infection following a procedure, other surgical site, initial encounter Status: Acute Assessment and Plan: - s/p IR drain placement 01/16/20-- 370cc of output since placement - Abscess cultures pending: gram negative bacilli, pending speciation and sensitivities - Pt has severe PCN allergy; continue Aztreonam 1g IV q8h + Clindamycin 900mg IV q8h + Flagyl 500mg q6h (plan to administer IV antibiotics for 48 hours after pt clinically improved/resolving leukocytosis/significant change in size of abscess) -- had 10/05/09 doses so far - Labs daily - Electrolytes: to be replaced per hospitalist - Leukocytosis downtrending/stable 23 --> 17 --> 14 -->14 - Blood cultures pending: no growth to date - Pt has been afebrile since admission, will continue to monitor - Percocet 1-2 tabs q4-6hr PRN pain, dilaudid 0.5 q4h PRN breakthrough, ibuprofen 800mg TID PRN - Bowel regimen: colace 100mg BID + Miralax 17g PO daily + colace suppository PRN -- hold for diarrhea - Regular diet; SLIV - Continue home meds: trazadone 50mg qhs, clonazepam 1mg TID PRN, amitriptyline 50mg qd, citalopram 40mg qd, methocarbamol 750mg TID PRN - Will hold HTN/cholesterol meds -- hospitalist to restart when indicated Time Spent With Patient Time: Total time spent is greater than 50% in coordination of care (as documented) at patient's floor/unit and/or counseling patient: Time with patient: 15 - 25 minutes 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 She states her pain is not well controlled with 1 tab percocet; better with 2 tabs. She has had 3 normal BMs (not diarrhea or blood in her stool), and that has helped. She is tolerating regular diet w/o N/V. Still has mild dysuria. She denies any vaginal discharge or bleeding. The LLQ drain has been draining well. She has been ambulating around in her room w/o issue. No fever, chills, CP, SOB, headaches, dizziness, palpitations, N/V. Review of Systems Review of Systems: All systems reviewed & are unremarkable except as noted in HPI and below (HPI) Exam Const: General: cooperative, healthy appearing, comfortable and no acute distress Nutritional Appearance: obese Resp: Effort & Inspection: normal respiratory effort Auscultation: clear to auscultation bilaterally Cardio: Rate: regular rate GI: Inspection: incision (laparoscopic incisions healing w/o signs of infection or drainage) GI Palp: Yes abdominal tenderness (appropriate) Auscultation: normal bowel sounds Other: LLQ drain in place, draining dark brown/red fluid, no surrounding erythema from site : Other: no vaginal bleeding or discharge noted Skin: General skin exam: normal color Neuro: General: patient oriented x3 Speech: normal speech Extrem: General: normal to inspection Psych: Appearance: grossly normal Affect: normal affect Attitude: cooperative 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
[2020-01-18 12:00] VITALS: BP 144/73; PULSE 94; RESP 16; TEMP 36.1; O2SAT 100
[2020-01-18] MEDS: IBUPROFEN 400 MG TABLET 800 MG PO (12:07)
[2020-01-18 12:41] LABS: Anion Gap 5 mmol/L (8-16); Blood Urea Nitrogen 11 mg/dL (7-17); Calcium 8.5 mg/dL (8.4-10.2); Carbon Dioxide 31 mmol/L (22-30); Chloride 100 mmol/L (98-107); Estimated CRCL calculation 142 ml/min; Estimated Glomerular Filt Rate > 60; Glucose 93 mg/dL (65-105); Magnesium 1.7 mg/dL (1.6-2.3); Sodium 136 mmol/L (137-145)
[2020-01-18 12:57] LABS: Potassium 3.6 mmol/L (3.4-5.0)
[2020-01-18 16:00] VITALS: BP 125/61; PULSE 87; RESP 16; TEMP 35.7; O2SAT 99
--- NOTE | 2020-01-18 16:04 | PM.IMPN ---
Progress Note: A&P Assessment and Plan (1) Hypokalemia: Code(s): E87.6 - Hypokalemia Status: Acute Assessment and Plan: Will replace as needed. Continue to monitor. Daily BMP. 01/18/20 16:04 patient is a 34-year-old female status post hysterectomy 2 weeks ago, on 01/14 while on the toilet patient felt foul smelling drainage from her vagina, patient presented emergency depart CT scan of abdomen and pelvis showed a large pelvic complex fluid collection with additional regions extending into the abdomen, appearance consistent with abscess. patient [employer] [address] Cervantes was notified, patient was seen by IR and drainage was placed on 01/15 and 290 cc drained, Preliminary cultures from abscess is growing gram-negative bacilli, blood culture no growth so far patient being treated Aztreonam 1g IV q8h + Clindamycin 900mg IV q8h, and Flagyl, patient urine culture is growing E coli sensitive to Macrobid patient was seen by her Donze and started the antibiotic, today patient states feeling better, drainage from a vagina has stopped pain is better denies any fever or chills, will follow-up and monitor and patient is seen by her [employer] 1 through 5 teacher and further recommendation to follow (2) Anemia: Qualifiers: Anemia type: other cause Other causes of anemia: acute posthemorrhagic Qualified Code(s): D62 - Acute posthemorrhagic anemia Code(s): D64.9 - Anemia, unspecified Status: Acute Assessment and Plan: Will transfuse as needed. Continue to monitor. H&H today is 9.5 (3) Chronic back pain: Code(s): M54.9 - Dorsalgia, unspecified; G89.29 - Other chronic pain Status: Chronic Assessment and Plan: Pain management. (4) Hyperlipidemia: Code(s): E78.5 - Hyperlipidemia, unspecified Status: Chronic Assessment and Plan: Diet and lifestyle modifications. (5) HTN (hypertension) with goal to be determined: Code(s): I10 - Essential (primary) hypertension Status: Chronic Assessment and Plan: Continue to monitor On HZTC and Lisinopril at home. (6) Sepsis: Qualifiers: Sepsis acute organ dysfunction status: unspecified Sepsis type: sepsis due to unspecified organism Qualified Code(s): A41.9 - Sepsis, unspecified organism Code(s): A41.9 - Sepsis, unspecified organism Status: Acute Assessment and Plan: Continue Aztreonam and Clindamycin. (7) Postoperative abscess: Code(s): T81.49XA - Infection following a procedure, other surgical site, initial encounter Status: Acute Assessment and Plan: S/p IR drainage placement. Continue to monitor Subjective Date/time seen: 01/18/20 16:04 patient is a 34-year-old female status post hysterectomy 2 weeks ago, on 01/14 while on the toilet patient felt foul smelling drainage from her vagina, patient presented emergency depart CT scan of abdomen and pelvis showed a large pelvic complex fluid collection with additional regions extending into the abdomen, appearance consistent with abscess. patient [employer] [address] 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
[2020-01-18 19:53] VITALS: BP 148/78; PULSE 92; RESP 16; TEMP 36.6; O2SAT 100
[2020-01-18] MEDS: traZODone HCL 50 MG TABLET 100 MG PO (20:00)
[2020-01-18] MEDS: CITALOPRAM HYDROBROMIDE 20 MG TABLET 40 MG PO (20:01)
[2020-01-19] VITALS: BP 141/77; PULSE 88; RESP 16; TEMP 36; O2SAT 97
[2020-01-19] MEDS: oxyCODONE/ACETAMINOPHEN (*CRX) 5-325 MG TABLET 2 TABLET PO ×4 (03:38→22:43)
[2020-01-19 04:00] VITALS: BP 136/67; PULSE 84; RESP 16; TEMP 36.8; O2SAT 98
[2020-01-19 05:15] LABS: Basophils Absolute Auto 0.1 K/mm3 (0.0-0.1); Basophils Percent Auto 0.5 % (0.2-1.2); Eosinophils Absolute Auto 0.5 K/mm3 (0-0.3); Eosinophils Percent Auto 4.5 % (0-4.4); Hemoglobin 8.5 g/dL (12.0-15.0); Immature Granulocyte Absolute 0.16 K/mm3 (0.00-0.031); Immature Granulocyte Percent A 1.3 % (0-0.5); Lymphocytes Absolute Auto 2.07 K/mm3 (0.9-3.2); Lymphocytes Percent Auto 17.3 % (18.3-44.2); Mean Corpuscular HGB Conc 32.7 g/dl (32-36); Mean Corpuscular Hemoglobin 27.9 pg (26-34); Mean Corpuscular Volume 85.2 fl (80-100); Mean Platelet Volume 8.7 fl (7.4-10.4); Monocytes Absolute Auto 0.9 K/mm3 (0.1-0.6); Monocytes Percent Auto 7.2 % (2.6-8.5); Neutrophils Absolute Auto 8.3 K/mm3 (1.3-6.7); Neutrophils Percent Auto 69.2 % (45.5-73.1); Nucleated Red Blood Cells Perc 0.2 % (0.0-0.2); Platelet Count Result 784 k/mm3 (150-375); Red Blood Count 3.05 M/mm3 (4.2-5.4); Red Cell Distribution Width 14.9 % (11.5-14.5)
[2020-01-19] MEDS: metroNIDAZOLE 500 MG/ISO 100ML 500 MG/100 ML BAG 100 MG IVPB ×3 (05:20→17:16)
[2020-01-19] MEDS: AZTREONAM 1 GM in SODIUM CHLORIDE 0.9% IV 50 ML 100 ML IVPB ×3 (05:20→21:06)
[2020-01-19 05:26] LABS: Anion Gap 7 mmol/L (8-16); Blood Urea Nitrogen 9 mg/dL (7-17); Carbon Dioxide 29 mmol/L (22-30); Chloride 102 mmol/L (98-107); Estimated CRCL calculation 162 ml/min; Estimated Glomerular Filt Rate > 60; Glucose 102 mg/dL (65-105); Magnesium 1.4 mg/dL (1.6-2.3); Potassium 3.5 mmol/L (3.4-5.0); Sodium 138 mmol/L (137-145)
[2020-01-19] MEDS: CLINDAMYCIN 900 MG/NS 50 ML 900 MG/50 ML PIGGYBACK 50 MG IVPB ×3 (05:50→22:07)
[2020-01-19] MEDS: POTASSIUM CHLORIDE 20 MEQ PACKET (FOR LIQUID) 40 MEQ PO (08:31)
[2020-01-19] MEDS: MAGNESIUM SULF 2 GM/WATER 50ML 2 GM/50 ML BAG IVPB (08:32)
[2020-01-19] MEDS: FERROUS SULFATE 324 MG TABLET PO ×3 (08:35→17:16)
[2020-01-19] MEDS: polyethylene glycoL 3350 17 GM POWD.PACK PO (08:35)
[2020-01-19] MEDS: ASCORBIC ACID 500 MG TABLET PO (08:35)
[2020-01-19] MEDS: FOLIC ACID 0.4 MG TABLET PO (08:35)
[2020-01-19] MEDS: AMITRIPTYLINE HCL 25 MG TABLET 50 MG PO ×4 (08:35→20:51)
[2020-01-19] MEDS: DOCUSATE SODIUM 100 MG CAPSULE PO ×2 (08:35→20:52)
[2020-01-19] MEDS: NITROFURANTOIN MONOHYD MACROCR 100 MG CAP PO ×2 (08:35→20:51)
[2020-01-19] MEDS: MAGNESIUM OXIDE 400 MG TABLET PO (08:56)
[2020-01-19] MEDS: methocarbamoL 750 MG TABLET PO (08:57)
--- NOTE | 2020-01-19 12:52 | PM.GYNPNOP ---
FLUMER - A/P Assessment and plan (1) Postoperative abscess: Code(s): T81.49XA - Infection following a procedure, other surgical site, initial encounter Status: Acute Assessment and Plan: - s/p IR drain placement 01/16/20-- 520cc of output since placement, increased in last 24 hrs - Abscess cultures pending: gram negative bacilli, -- [facility] called; growing e. coli, strep and prevotella - Will consult ID - Pt has severe PCN allergy; continue Aztreonam 1g IV q8h + Clindamycin 900mg IV q8h + Flagyl 500mg q6h (plan to administer IV antibiotics for 48 hours after pt clinically improved/resolving leukocytosis/significant change in size of abscess) -- had 10/05/09 doses so far - Labs daily - Electrolytes: to be replaced per hospitalist - Leukocytosis downtrending/stable 23 --> 17 --> 14 -->14 --> 12 - Blood cultures pending: no growth to date - Pt has been afebrile since admission, will continue to monitor - Clinically was improving but reports worsening RLQ pain; will repeat CT today - Percocet 1-2 tabs q4-6hr PRN pain, dilaudid 0.5 q4h PRN breakthrough, ibuprofen 800mg TID PRN - Bowel regimen: colace 100mg BID + Miralax 17g PO daily + colace suppository PRN -- hold for diarrhea - Regular diet; SLIV - Continue home meds: trazadone 50mg qhs, clonazepam 1mg TID PRN, amitriptyline 50mg qd, citalopram 40mg qd, methocarbamol 750mg TID PRN - Will hold HTN/cholesterol meds -- hospitalist to restart when indicated (2) Anemia: Qualifiers: Anemia type: other cause Other causes of anemia: acute posthemorrhagic Qualified Code(s): D62 - Acute posthemorrhagic anemia Code(s): D64.9 - Anemia, unspecified Status: Acute Assessment and Plan: - S/p transfusion of 2 units of pRBC on 01/16/20 - Hgb trend: 7.2 --> 8.9 --> 9.5 --> 8.5 - Spotting can be normal with infected tissues; transfuse as needed - Continue Iron TID + folic acid + vitamin C (3) UTI (urinary tract infection): Code(s): N39.0 - Urinary tract infection, site not specified Status: Acute Assessment and Plan: - Urine culture with E. coli; sensitive to Macrobid - Continue Macrobid 100mg BID x 7 days (complicated UTI) Time Spent With Patient Time: Total time spent is greater than 50% in coordination of care (as documented) at patient's floor/unit and/or counseling patient: Time with patient: less than 15 minutes FLUMER- PN:Subj Post-Op Subjective Date/time seen: 01/19/20 12:52 HD#5 Kit reports worsening RLQ pain. Has had some spotting on and off yesterday/today. Tolerating regular diet. Voiding w/o issue. Normal BMs. Ambulating around room. No n/v, diarrhea, vaginal discharge, CP, SOB, fever, chills, dizziness, palpitations, extremity swelling. present today. Review of Systems Review of Systems: All systems reviewed & are unremarkable except as noted in HPI and below (HPI) Exam Const: General: cooperative, comfortable and no acute distress Nutritional Appearance: obese Orientation/consciousness: patient oriented x3 Resp: Effort & Inspection: normal respiratory effort Auscultation: clear to auscultation bilaterally Cardio: Rate: regular rate GI: Inspection: non-distended and incision (laparoscopic incision healings w/o signs of infection) GI Palp: Yes abdominal tenderness (RLQ > than rest of abdomen) Auscultation: normal bowel sounds : Other: encouraged to wear pad to monitor bleeding Skin: General skin exam: normal color Neuro: Speech: normal speech Extrem: General: normal to inspection Psych: Appearance: grossly normal Affect: normal affect Attitude: cooperative FLUMER - PN: Obj Data Vital Signs Vital Signs: Vital Signs - 24 hr 01/18/20 16:00 01/18/20 19:53 01/19/20 00:00 Temperature 35.7 C L 36.6 C 36.0 C L Pulse Rate 87 92 88 Respiratory Rate 16 16 16 Blood Pressure 125/61 148/78 H 141/77 H Pulse Oximetry 99 100 97 01/19/20 04:00 Temperature 36.8 C Pulse Rate 84 Respir
[2020-01-19 14:00] VITALS: BP 110/58; PULSE 96; RESP 17; TEMP 36.7; O2SAT 99
--- NOTE | 2020-01-19 14:00 | PM.IMPN ---
Progress Note: A&P Assessment and Plan (1) Hypokalemia: Code(s): E87.6 - Hypokalemia Status: Acute Assessment and Plan: Will replace as needed. Continue to monitor. Daily BMP. 01/19/20 14:00 patient is a 34-year-old female status post hysterectomy 2 weeks ago, on 01/14 while on the toilet patient felt foul smelling drainage from her vagina, patient presented emergency depart CT scan of abdomen and pelvis showed a large pelvic complex fluid collection with additional regions extending into the abdomen, appearance consistent with abscess. patient partition notcher Dr. Cervantes was notified, patient was seen by IR and drainage was placed on 01/15 and 290 cc drained, Preliminary cultures from abscess is growing gram-negative bacilli, blood culture no growth so far patient being treated Aztreonam 1g IV q8h + Clindamycin 900mg IV q8h, and Flagyl, patient urine culture is growing E coli sensitive to Macrobid patient was seen by her Brake Drum Lathe Operator and was started the antibiotic, today 01/18 patient complains low abdominal pain patient was seen by her gynecology and to further evaluate will do repeat CT scan abdomen and pelvis, will also consult Dr. Solorio for further recommended in terms of antibiotic, discussed with Dr. Cervantes her gynecology, will continue to monitor and plan (2) Anemia: Qualifiers: Anemia type: other cause Other causes of anemia: acute posthemorrhagic Qualified Code(s): D62 - Acute posthemorrhagic anemia Code(s): D64.9 - Anemia, unspecified Status: Acute Assessment and Plan: Will transfuse as needed. Continue to monitor. H&H on 01/17 9.5 today is 8.5 (3) Chronic back pain: Code(s): M54.9 - Dorsalgia, unspecified; G89.29 - Other chronic pain Status: Chronic Assessment and Plan: Pain management. (4) Hyperlipidemia: Code(s): E78.5 - Hyperlipidemia, unspecified Status: Chronic Assessment and Plan: Diet and lifestyle modifications. (5) HTN (hypertension) with goal to be determined: Code(s): I10 - Essential (primary) hypertension Status: Chronic Assessment and Plan: Continue to monitor On HZTC and Lisinopril at home. (6) Sepsis: Qualifiers: Sepsis acute organ dysfunction status: unspecified Sepsis type: sepsis due to unspecified organism Qualified Code(s): A41.9 - Sepsis, unspecified organism Code(s): A41.9 - Sepsis, unspecified organism Status: Acute Assessment and Plan: Continue Aztreonam and Clindamycin. (7) Postoperative abscess: Code(s): T81.49XA - Infection following a procedure, other surgical site, initial encounter Status: Acute Assessment and Plan: S/p IR drainage placement. Continue to monitor Subjective Date/time seen: 01/19/20 14:00 patient is a 34-year-old female status post hysterectomy 2 weeks ago, on 01/14 while on the toilet patient felt foul smelling drainage from her vagina, patient presented emergency depart CT scan of abdomen and pelvis showed a large pelvic complex fluid collection with additional regions extending into the abdomen, appearance consistent with abscess. patient partition notcher Dr. Cervantes was notified, patient was seen by IR and drainage was placed on 01/15 and 290 cc drained, Preliminary cultures from abscess is growing gram-negative bacilli, blood culture no growth so far patient being treated Aztreonam 1g IV q8h + Clindamycin 900mg IV q8h, and Flagyl, patient urine culture is growing E coli sensitive to Macrobid patient was seen by her Brake Drum Lathe Operator and was started the antibiotic, today 01/18 patient complains low abdominal pain patient was seen by her gynecology and to further evaluate will do repeat CT scan abdomen and pelvis, will also consult Dr. Solorio for further recommended in terms of antibiotic, discussed with Dr. Cervantes her gynecology, will continue to monitor and plan Review of Systems Review of Systems: All systems r
[2020-01-19 20:05] VITALS: BP 132/78; PULSE 108; RESP 18; TEMP 36.4; O2SAT 100
[2020-01-19] MEDS: CITALOPRAM HYDROBROMIDE 20 MG TABLET 40 MG PO (20:51)
[2020-01-19] MEDS: ONDANSETRON INJ 4 MG/2 ML VIAL IV PUSH (21:56)
[2020-01-19] MEDS: clonazePAM (*CRX) 0.5 MG TABLET 1 MG PO (22:04)
[2020-01-19] MEDS: traZODone HCL 50 MG TABLET 100 MG PO (22:05)
[2020-01-19 22:33] VITALS: PULSE 103; RESP 22; O2SAT 97
[2020-01-20] MEDS: metroNIDAZOLE 500 MG/ISO 100ML 500 MG/100 ML BAG 100 MG IVPB ×3 (01:00→11:10)
[2020-01-20 02:00] VITALS: PULSE 90; RESP 15; O2SAT 94
[2020-01-20] MEDS: oxyCODONE/ACETAMINOPHEN (*CRX) 5-325 MG TABLET 2 TABLET PO ×3 (05:01→17:17)
[2020-01-20] MEDS: AZTREONAM 1 GM in SODIUM CHLORIDE 0.9% IV 50 ML 100 ML IVPB ×3 (05:03→21:27)
[2020-01-20] MEDS: CLINDAMYCIN 900 MG/NS 50 ML 900 MG/50 ML PIGGYBACK 50 MG IVPB ×3 (05:40→22:55)
[2020-01-20 06:03] VITALS: BP 125/70; PULSE 82; RESP 17; TEMP 36.3; O2SAT 98
[2020-01-20 06:22] LABS: Basophils Absolute Auto 0.1 K/mm3 (0.0-0.1); Basophils Percent Auto 0.5 % (0.2-1.2); Eosinophils Absolute Auto 0.5 K/mm3 (0-0.3); Hematocrit 27.5 % (37.0-47.0); Hemoglobin 8.7 g/dL (12.0-15.0); Immature Granulocyte Absolute 0.22 K/mm3 (0.00-0.031); Immature Granulocyte Percent A 2.2 % (0-0.5); Lymphocytes Percent Auto 28.5 % (18.3-44.2); Mean Corpuscular HGB Conc 31.6 g/dl (32-36); Mean Corpuscular Hemoglobin 27.7 pg (26-34); Mean Corpuscular Volume 87.6 fl (80-100); Mean Platelet Volume 8.8 fl (7.4-10.4); Monocytes Absolute Auto 0.7 K/mm3 (0.1-0.6); Monocytes Percent Auto 7.1 % (2.6-8.5); Neutrophils Absolute Auto 5.8 K/mm3 (1.3-6.7); Neutrophils Percent Auto 56.7 % (45.5-73.1); Nucleated Red Blood Cells Perc 0.2 % (0.0-0.2); Platelet Count Result 928 k/mm3 (150-375); Red Blood Count 3.14 M/mm3 (4.2-5.4); White Blood Count 10.2 K/mm3 (4.5-10.0)
[2020-01-20 06:30] LABS: Anion Gap 6 mmol/L (8-16); Blood Urea Nitrogen 9 mg/dL (7-17); Calcium 8.2 mg/dL (8.4-10.2); Carbon Dioxide 31 mmol/L (22-30); Chloride 102 mmol/L (98-107); Estimated CRCL calculation 162 ml/min; Estimated Glomerular Filt Rate > 60; Glucose 87 mg/dL (65-105); Magnesium 1.7 mg/dL (1.6-2.3); Potassium 4.3 mmol/L (3.4-5.0); Sodium 139 mmol/L (137-145)
[2020-01-20 08:03] LABS: Anisocytosis 1+ (NORMAL); Hypochromasia 2+ (NORMAL); Large Platelets Present; Microcytosis 1+ (NORMAL); Platelet Estimate Increased (Adequate)
[2020-01-20 08:04] LABS: Polychromasia 1+ (NORMAL)
[2020-01-20 08:05] LABS: Atypical Lymphocytes Present
[2020-01-20] MEDS: AMITRIPTYLINE HCL 25 MG TABLET 50 MG PO ×4 (08:39→21:24)
[2020-01-20] MEDS: NITROFURANTOIN MONOHYD MACROCR 100 MG CAP PO ×2 (08:40→21:24)
[2020-01-20] MEDS: FERROUS SULFATE 324 MG TABLET PO ×3 (08:40→16:35)
[2020-01-20] MEDS: DOCUSATE SODIUM 100 MG CAPSULE PO ×2 (08:40→21:24)
[2020-01-20] MEDS: FOLIC ACID 0.4 MG TABLET PO (08:40)
[2020-01-20] MEDS: polyethylene glycoL 3350 17 GM POWD.PACK PO (08:40)
[2020-01-20] MEDS: ASCORBIC ACID 500 MG TABLET PO (08:41)
[2020-01-20] MEDS: MAGNESIUM OXIDE 400 MG TABLET PO (08:41)
[2020-01-20] MEDS: clonazePAM (*CRX) 0.5 MG TABLET 1 MG PO ×2 (08:43→21:24)
--- NOTE | 2020-01-20 12:29 | PM.IMPN ---
Progress Note: A&P Assessment and Plan (1) Hypokalemia: Code(s): E87.6 - Hypokalemia Status: Acute Assessment and Plan: Will replace as needed. Continue to monitor. Daily BMP. 01/20/20 12:29 patient is a 34-year-old female status post hysterectomy 2 weeks ago, on 01/14 while on the toilet patient felt foul smelling drainage from her vagina, patient presented emergency depart CT scan of abdomen and pelvis showed a large pelvic complex fluid collection with additional regions extending into the abdomen, appearance consistent with abscess. patient reflow operator Dr. Cervantes was notified, patient was seen by IR and drainage was placed on 01/15 and 290 cc drained, Preliminary cultures from abscess is growing gram-negative bacilli, blood culture no growth so far patient being treated Aztreonam 1g IV q8h + Clindamycin 900mg IV q8h, and Flagyl, patient urine culture is growing E coli sensitive to Macrobid patient was seen by her Human Resource Consultant and was started the antibiotic, on 01/18 patient complains low abdominal pain patient was seen by her gynecology and to further evaluate repeated CT scan abdomen and pelvis today 01/19 the scan showed:1. Improved pelvic abscess postdrainage placement now measuring 9.6 x 7.5 cm transverse dimension. 2: No small abscess anterior abdominal wall paracentral to the right measuring 5.1 x 2.2 cm. 3: New small right pleural effusion. Bibasilar atelectasis. It shows the initial abscess is has improved with drain however patient has now developed small collection of No small abscess anterior abdominal wall patient be seen by her reflow operator and further recommendation to follow. abdominal pain is still persisting. will also consult Dr. Solorio for further recommended in terms of antibiotic, discussed with Dr. Cervantes her gynecology, will continue to monitor and plan (2) Anemia: Qualifiers: Anemia type: other cause Other causes of anemia: acute posthemorrhagic Qualified Code(s): D62 - Acute posthemorrhagic anemia Code(s): D64.9 - Anemia, unspecified Status: Acute Assessment and Plan: Will transfuse as needed. Continue to monitor. H&H on 01/17 9.5 today is 8.7 (3) Chronic back pain: Code(s): M54.9 - Dorsalgia, unspecified; G89.29 - Other chronic pain Status: Chronic Assessment and Plan: Pain management. (4) Hyperlipidemia: Code(s): E78.5 - Hyperlipidemia, unspecified Status: Chronic Assessment and Plan: Diet and lifestyle modifications. (5) HTN (hypertension) with goal to be determined: Code(s): I10 - Essential (primary) hypertension Status: Chronic Assessment and Plan: Continue to monitor On HZTC and Lisinopril at home. (6) Sepsis: Qualifiers: Sepsis acute organ dysfunction status: unspecified Sepsis type: sepsis due to unspecified organism Qualified Code(s): A41.9 - Sepsis, unspecified organism Code(s): A41.9 - Sepsis, unspecified organism Status: Acute Assessment and Plan: Continue Aztreonam and Clindamycin. plan is above (7) Postoperative abscess: Code(s): T81.49XA - Infection following a procedure, other surgical site, initial encounter Status: Acute Assessment and Plan: S/p IR drainage placement. Continue to monitor Subjective Date/time seen: 01/20/20 12:29 patient is a 34-year-old female status post hysterectomy 2 weeks ago, on 01/14 while on the toilet patient felt foul smelling drainage from her vagina, patient presented emergency depart CT scan of abdomen and pelvis showed a large pelvic complex fluid collection with additional regions extending into the abdomen, appearance consistent with abscess. patient reflow operator Dr. Cervantes was notified, patient was seen by IR and drainage was placed on 01/15 and 290 cc drained, Preliminary cultures from abscess is growing gram-negative bacilli, blood culture no growth so far patient being treated
--- NOTE | 2020-01-20 12:45 | PM.GYNPNOP ---
[employer] - A/P Assessment and plan (1) Postoperative abscess: Code(s): T81.49XA - Infection following a procedure, other surgical site, initial encounter Status: Acute Assessment and Plan: - s/p IR drain placement 01/16/20-- significant output since placement, remained >100cc/24hs; drain to remain in place - Abscess cultures pending: gram negative bacilli, -- growing e. coli (sensitive to gentamicin), streptococcus and prevotella - ID recs: continue current abx - Pt has severe PCN allergy; continue Aztreonam 1g IV q8h + Clindamycin 900mg IV q8h + Flagyl 500mg q6h-- continue IV abx as abscess is still large - Labs daily - Electrolytes: to be replaced per hospitalist - Leukocytosis downtrending/stable 23 --> 17 --> 14 -->14 --> 12 --> 10.2 - Blood cultures pending: no growth to date - Pt has been afebrile since admission and clinically improving - Repeat CT scan shows concern for subcutaneous abscess (possibly near drain? based on physical exam findings)-- order placed for US drainage of subcutaneous abscess - Percocet 1-2 tabs q4-6hr PRN pain, dilaudid 0.5 q4h PRN breakthrough, ibuprofen 800mg TID PRN - Bowel regimen: colace 100mg BID + Miralax 17g PO daily + colace suppository PRN -- hold for diarrhea - Regular diet; SLIV - Continue home meds: trazadone 50mg qhs, clonazepam 1mg TID PRN, amitriptyline 50mg qd, citalopram 40mg qd, methocarbamol 750mg TID PRN - Will hold HTN/cholesterol meds -- hospitalist to restart when indicated (2) UTI (urinary tract infection): Code(s): N39.0 - Urinary tract infection, site not specified Status: Acute Assessment and Plan: - continue macrobid (3) Anemia: Qualifiers: Anemia type: other cause Other causes of anemia: acute posthemorrhagic Qualified Code(s): D62 - Acute posthemorrhagic anemia Code(s): D64.9 - Anemia, unspecified Status: Acute Assessment and Plan: - stable; continuing to monitor Time Spent With Patient Time: Total time spent is greater than 50% in coordination of care (as documented) at patient's floor/unit and/or counseling patient: Time with patient: less than 15 minutes [employer]- PN:Subj Post-Op Subjective Date/time seen: 01/20/20 12:44 Kit is feeling much better today. She states her pain is unchanged (but not endorsing RLQ pain anymore), but just overall feels better. She continues to have light spotting in the morning; none by afternoon. No vaginal discharge. Using restroom normally. Review of Systems Review of Systems: All systems reviewed & are unremarkable except as noted in HPI and below (HPI) Exam Const: General: cooperative, healthy appearing, comfortable, no acute distress and well groomed Nutritional Appearance: obese Resp: Effort & Inspection: normal respiratory effort Auscultation: clear to auscultation bilaterally Cardio: Rate: regular rate GI: Inspection: incision (laparoscopic incisions healing, nontender, no infection) and other (LLQ drain in place; very tender to touch) GI Palp: Yes abdominal tenderness (appropriate), Yes Soft to palpation and No Guarding due to palpation present (GI) Auscultation: normal bowel sounds Skin: General skin exam: normal color Neuro: General: patient oriented x3 Extrem: General: normal to inspection Psych: Appearance: grossly normal and well kempt Affect: normal affect Attitude: cooperative [employer] - PN: Obj Data Vital Signs Vital Signs: Vital Signs - 24 hr 01/19/20 20:05 01/19/20 22:33 01/20/20 02:00 Temperature 36.4 C L Pulse Rate 108 H 103 H 90 Respiratory Rate 18 22 H 15 Blood Pressure 132/78 Pulse Oximetry 100 97 94 01/20/20 06:03 01/20/20 14:00 Temperature 36.3 C L 36.9 C Pulse Rate 82 91 Respiratory Rate 17 18 Blood Pressure 125/70 120/67 Pulse Oximetry 98 100 Intake/Output Intake/Output: Intake & Output 01/17/20 01/18/20 01/19/20 01/20/20 23:59 23:59 23:59 23:59 Intake Total 2520 3230 2670 1980 Output
[2020-01-20 14:00] VITALS: BP 120/67; PULSE 91; RESP 18; TEMP 36.9; O2SAT 100
--- NOTE | 2020-01-20 15:54 | WPDINFPN2 ---
Progress Note: A&P Assessment and Plan (1) Postoperative abscess: Code(s): T81.49XA - Infection following a procedure, other surgical site, initial encounter Status: Acute Assessment and Plan: post op pelvic abscess REC Aztreonam and clinda #5, continue. Will need drainage procedure of some kind for the new fluid collection Subjective Date/time seen: 01/20/20 15:54 Objective Data Vital Signs Vital Signs: Vital Signs - 24 hr 01/19/20 20:05 01/19/20 22:33 01/20/20 02:00 Temperature 36.4 C L Pulse Rate 108 H 103 H 90 Respiratory Rate 18 22 H 15 Blood Pressure 132/78 Pulse Oximetry 100 97 94 01/20/20 06:03 01/20/20 14:00 Temperature 36.3 C L 36.9 C Pulse Rate 82 91 Respiratory Rate 17 18 Blood Pressure 125/70 120/67 Pulse Oximetry 98 100 Intake/Output Intake/Output: Intake & Output 01/17/20 01/18/20 01/19/20 01/20/20 23:59 23:59 23:59 23:59 Intake Total 2520 3230 2670 1980 Output Total 3870 903 160 30 Balance -1350 2327 2510 1950 Meds/Results Medications: Active Medications Generic Name Dose Route Start Last Admin Trade Name Freq PRN Reason Stop Dose Admin Amitriptyline HCl 50 mg 01/16/20 09:00 01/20/20 12:51 Amitriptyline Hcl 25 Mg Tablet PO 50 mg TID CATHY Administration Amitriptyline HCl 50 mg 01/16/20 21:00 01/19/20 20:51 Amitriptyline Hcl 25 Mg Tablet PO 50 mg HS CATHY Administration Ascorbic Acid 500 mg 01/17/20 09:00 01/20/20 08:41 Ascorbic Acid 500 Mg Tablet PO 500 mg DAILY CATHY Administration Bisacodyl 10 mg 01/17/20 10:12 Bisacodyl 10 Mg Suppository RECTAL QAM PRN Constipation Citalopram Hydrobromide 40 mg 01/16/20 21:00 01/19/20 20:51 Citalopram Hydrobromide 20 Mg Tablet PO 40 mg HS CATHY Administration Clonazepam 1 mg 01/16/20 09:19 01/20/20 08:43 Clonazepam (*Crx) 0.5 Mg Tablet PO 1 mg Q12H PRN Administration Anxiety Docusate Sodium 100 mg 01/17/20 09:00 01/20/20 08:40 Docusate Sodium 100 Mg Capsule PO 100 mg Q12HR CATHY Administration Ferrous Sulfate 324 mg 01/17/20 12:00 01/20/20 11:11 Ferrous Sulfate 324 Mg Tablet PO 324 mg TIDWM CATHY Administration Folic Acid 0.4 mg 01/17/20 09:00 01/20/20 08:40 Folic Acid 0.4 Mg Tablet PO 0.4 mg DAILY CATHY Administration Hydromorphone HCl 0.5 mg 01/17/20 08:13 01/17/20 22:38 Hydromorphone Hcl Inj (*Crx) 1 Mg/Ml Syr IV PUSH 0.5 mg Q4H PRN Administration Breakthrough Pain Clindamycin/Sodium Chloride 900 mg in 50 mls @ 50 mls/hr 01/16/20 06:00 01/20/20 15:33 Cleocin 900 Mg/Ns 50 Ml IVPB Infused Q8HR CATHY Infusion Metronidazole 500 mg in 100 mls @ 100 mls/hr 01/16/20 01:00 01/20/20 12:17 Flagyl 500 Mg/Iso Soln 100 Ml IVPB Infused Q6HR CATHY Infusion Aztreonam 1 gm/ Sodium 50 mls @ 100 mls/hr 01/16/20 06:00 01/20/20 14:29 Chloride IVPB Infused Q8HR CATHY Infusion Ibuprofen 800 mg 01/17/20 10:12 01/18/20 12:07 Ibuprofen 400 Mg Tablet PO 800 mg Q8H PRN Administration Pain Rated 1-3 Lorazepam 0.5 mg 01/16/20 02:58 01/16/20 03:57 Lorazepam Inj (*Crx) 2 Mg/Ml Vial IV PUSH 0.5 mg Q6H PRN Administration Anxiety Magnesium Oxide 400 mg 01/19/20 09:00 01/20/20 08:41 Magnesium Oxide 400 Mg Tablet PO 400 mg QAM CATHY Administration Methocarbamol 750 mg 01/17/20 10:15 01/19/20 08:57 Methocarbamol 750 Mg Tablet PO 750 mg TID PRN Administration Muscle Spasm Nitrofurantoin Macrocrystals 100 mg 01/18/20 09:00 01/20/20 08:40 Nitrofurantoin Monohyd Macrocr 100 Mg Cap PO 10/26/20 09:01 100 mg Q12HR CATHY Administration Ondansetron HCl 4 mg 01/16/20 09:19 01/19/20 21:56 Ondansetron Inj 4 Mg/2 Ml Vial IV PUSH 4 mg Q6H PRN Administration Nausea And Vomiting Oxycodone/Acetaminophen 1 tablet 01/17/20 08:10 01/18/20 08:31 Oxycodone/Acetaminophen (*Crx) 5-325 Mg Tablet PO 1 tablet Q4H PRN Administration
[2020-01-20] MEDS: methocarbamoL 750 MG TABLET PO (16:36)
[2020-01-20] MEDS: HYDROmorphone HCL INJ (*CRX) 1 MG/ML SYR 0.5 MG IV PUSH (18:05)
[2020-01-20 19:34] VITALS: BP 129/75; PULSE 100; RESP 18; TEMP 36.1; O2SAT 100
--- NOTE | 2020-01-20 20:25 | CONS_ITS ---
DATE OF CONSULTATION: 01/20/2020 REASON FOR CONSULTATION: Pelvic abscess. HISTORY OF PRESENT ILLNESS: A 34-year-old female underwent hysterectomy, robotic-assisted as well as salpingectomy on 01/04/2020, thus is postop day #16. She had persistent pain in the lower pelvis bilaterally after her operation, this was relieved only partially with analgesics. She was seen in the office 2 days before admission, where analgesics were adjusted. She presented to the emergency room on the with markedly increased pain the same day along with new onset of foul smelling bloody vaginal discharge. She has been on aztreonam, clindamycin, and metronidazole. Consultation requested. The patient was taken to Interventional Radiology on the day after admission and that percutaneous drain remains in place. A 15 cc of fluid was evacuated at that time for cultures. The pain is somewhat better, but not resolved. The discharge also persists. Has not required any other interventions. No fever, chills, sweats. Recent antibiotic use for any other purpose. Previous operative interventions. Her findings at the time of her hysterectomy include endometriosis. PAST MEDICAL HISTORY: Hysterectomy as above. Also, spinal fusion, breast reduction, migraine headaches, hyperlipidemia, hypertension, depression, anxiety, back pain, and asthma. ALLERGIES: IN HER EARLY 20S, PENICILLIN OR AMOXICILLIN CAUSED ANAPHYLACTIC SHOCK. HABITS: Ex-smoker. No alcohol. No illicit drugs. PRESENT MEDICATIONS: Reviewed list in full. FAMILY HISTORY: Not pertinent to her present illness. SOCIAL HISTORY: She works as a , 3 foster children and 3 adopted children. REVIEW OF SYSTEMS: Fourteen-point review otherwise negative. PHYSICAL EXAMINATION: GENERAL: This is a young female, who appears her actual age. No acute distress. VITAL SIGNS: Since arrival, she has been afebrile. Blood pressure 120/67, pulse 91, respiratory rate 18, saturation 100% on room air. SKIN: Warm and dry. No rashes. EENT: Conjunctivae are clear. Oropharynx, oral mucosa normal. NECK: No masses or thyromegaly. LUNGS: Clear to auscultation and percussion. CARDIAC: Regular rate and rhythm without murmur, gallop. Pulses are 2+. ABDOMEN: Obese, distended. She has tenderness in the left lower quadrant and to a lesser extent right lower quadrant. The laparoscopy incisions are well healed. There is a drain in the left lower quadrant, draining dark brown thin fluid. She has no flank tenderness. EXTREMITIES: No clubbing, cyanosis, edema. LABORATORY DATA: White count 23.1 on readmission, now 10.2, hemoglobin 8.7, platelets are 928 and had been persistently high. Differential with a minimal left shift. Sodium is normal, CO2 of 31, BUN 9, creatinine 0.6. Calcium low. Magnesium normal. Her urinalysis, multiple abnormalities, not particularly suggestive of infection. RNA probes from the vaginal discharge negative for Trichomonas, Neisseria, chlamydia. RADIOLOGY: CT on admission with pelvic fluid collection, additional regions extending to the abdomen. Appendix not visualized. Hepatic steatosis. Repeat CT performed today shows new pleural effusion on the right and new fluid collection in the anterior abdominal wall, 5 x 2 cm. The pelvic fluid collection is smaller in size. ASSESSMENT: 1. Leukocytosis, pelvic pain, vaginal discharge, all due to postoperative wound infection with deep pelvic abscess, now drained, postop day #4. However, there is a new fluid collection in the anterior abdominal wall by CT and her pain persists, although improved somewhat. Overall, I think that the new fluid collection does represent an extension of her original infection and is in need of drainage. Her cultures from earlier including both
[2020-01-20] MEDS: CITALOPRAM HYDROBROMIDE 20 MG TABLET 40 MG PO (21:24)
[2020-01-20] MEDS: traZODone HCL 50 MG TABLET 100 MG PO (21:25)
[2020-01-20 22:44] VITALS: PULSE 90; RESP 17; O2SAT 94
[2020-01-21 02:02] VITALS: PULSE 97; RESP 22; O2SAT 98
[2020-01-21] MEDS: oxyCODONE/ACETAMINOPHEN (*CRX) 5-325 MG TABLET 2 TABLET PO ×4 (03:44→23:20)
[2020-01-21] MEDS: methocarbamoL 750 MG TABLET PO ×2 (03:44→11:09)
[2020-01-21] MEDS: HYDROmorphone HCL INJ (*CRX) 1 MG/ML SYR 0.5 MG IV PUSH (04:59)
[2020-01-21] MEDS: AZTREONAM 1 GM in SODIUM CHLORIDE 0.9% IV 50 ML 100 ML IVPB ×3 (05:01→21:29)
[2020-01-21 05:11] VITALS: BP 133/71; PULSE 90; RESP 18; TEMP 36.1; O2SAT 96
[2020-01-21] MEDS: CLINDAMYCIN 900 MG/NS 50 ML 900 MG/50 ML PIGGYBACK 50 MG IVPB ×3 (05:54→21:59)
[2020-01-21 06:11] LABS: Basophils Absolute Auto 0.1 K/mm3 (0.0-0.1); Basophils Percent Auto 0.5 % (0.2-1.2); Eosinophils Absolute Auto 0.5 K/mm3 (0-0.3); Hematocrit 28.2 % (37.0-47.0); Hemoglobin 8.9 g/dL (12.0-15.0); Immature Granulocyte Absolute 0.08 K/mm3 (0.00-0.031); Immature Granulocyte Percent A 0.8 % (0-0.5); Lymphocytes Absolute Auto 2.55 K/mm3 (0.9-3.2); Mean Corpuscular HGB Conc 31.6 g/dl (32-36); Mean Corpuscular Hemoglobin 27.4 pg (26-34); Mean Corpuscular Volume 86.8 fl (80-100); Mean Platelet Volume 8.9 fl (7.4-10.4); Monocytes Absolute Auto 0.6 K/mm3 (0.1-0.6); Monocytes Percent Auto 5.7 % (2.6-8.5); Neutrophils Absolute Auto 6.8 K/mm3 (1.3-6.7); Platelet Count Result 975 k/mm3 (150-375); Red Blood Count 3.25 M/mm3 (4.2-5.4); Red Cell Distribution Width 15.1 % (11.5-14.5); White Blood Count 10.6 K/mm3 (4.5-10.0)
[2020-01-21 06:24] LABS: Anion Gap 6 mmol/L (8-16); Blood Urea Nitrogen 10 mg/dL (7-17); Calcium 8.3 mg/dL (8.4-10.2); Carbon Dioxide 29 mmol/L (22-30); Chloride 102 mmol/L (98-107); Estimated CRCL calculation 162 ml/min; Estimated Glomerular Filt Rate > 60; Glucose 123 mg/dL (65-105); Magnesium 1.7 mg/dL (1.6-2.3); Potassium 3.9 mmol/L (3.4-5.0); Sodium 137 mmol/L (137-145)
[2020-01-21 07:40] LABS: Atypical Lymphocytes Present; Platelet Estimate Increased (Adequate); Polychromasia 1+ (NORMAL)
[2020-01-21] MEDS: FERROUS SULFATE 324 MG TABLET PO ×3 (08:20→16:35)
[2020-01-21] MEDS: AMITRIPTYLINE HCL 25 MG TABLET 50 MG PO ×4 (08:21→20:20)
[2020-01-21] MEDS: ASCORBIC ACID 500 MG TABLET PO (08:21)
[2020-01-21] MEDS: NITROFURANTOIN MONOHYD MACROCR 100 MG CAP PO ×2 (08:22→20:21)
[2020-01-21] MEDS: FOLIC ACID 0.4 MG TABLET PO (08:22)
[2020-01-21] MEDS: MAGNESIUM OXIDE 400 MG TABLET PO (08:22)
[2020-01-21] MEDS: DOCUSATE SODIUM 100 MG CAPSULE PO (08:22)
--- NOTE | 2020-01-21 13:47 | PC.NURSE ---
On 01/21/20, the student, [ Meena Mandel [facility] nursing home assistant administrator], provided care and completed [employer] documentation on this patient. I have reviewed the student's documentation and agree with the findings.
--- NOTE | 2020-01-21 13:53 | PM.GYNPNOP ---
BISCUIT PACKER - A/P Assessment and plan (1) Postoperative abscess: Code(s): T81.49XA - Infection following a procedure, other surgical site, initial encounter Status: Acute Assessment and Plan: - s/p IR drain placement 01/16/20-- significant output since placement, remained >100cc/24hs; drain to remain in place - Repeat CT scan 01/20/20 shows abscess still large, but decreased in size - s/p subcutaneous on 01/21/20 -- cultures pending - Pelvic abscess cultures: growing e. coli, streptococcus and prevotella - ID recs: continue current abx (Aztreonam + Clindamycin)-- will discuss when transitioning to PO meds (and what meds are appropriate) - Pt has severe PCN allergy; continue Aztreonam 1g IV q8h + Clindamycin 900mg IV q8h - Labs daily - Electrolytes: to be replaced per hospitalist - Leukocytosis downtrending/stable 23 --> 17 --> 14 -->14 --> 12 --> 10.2 --> 10.6 - Blood cultures: no growth to date - Pt has been afebrile since admission and clinically improving - Pain control: Percocet 1-2 tabs q4-6hr PRN pain, dilaudid 0.5 q4h PRN breakthrough, ibuprofen 800mg TID PRN - Continue bowel regimen-- hold for diarrhea - Regular diet; SLIV - Continue home meds - Will hold HTN/cholesterol meds -- hospitalist to restart when indicated (2) Anemia: Qualifiers: Anemia type: other cause Other causes of anemia: acute posthemorrhagic Qualified Code(s): D62 - Acute posthemorrhagic anemia Code(s): D64.9 - Anemia, unspecified Status: Acute Assessment and Plan: - s/p 2u pRBC 12/17/19 - H/H stable, will continue to monitor (3) UTI (urinary tract infection): Code(s): N39.0 - Urinary tract infection, site not specified Status: Acute Assessment and Plan: - Continue macrobid x 7 days Time Spent With Patient Time: Total time spent is greater than 50% in coordination of care (as documented) at patient's floor/unit and/or counseling patient: Time with patient: 15 - 25 minutes BISCUIT PACKER- PN:Subj Post-Op Subjective Date/time seen: 01/21/20 13:53 Kit just had her subcutaneous abscess drained by IR. Her LLQ drain isn't having issues; less drainage today. Her pain continues in the pelvic area. Light spotting mostly noted in the mornings, resolves by afternoon. No other vaginal discharge. Eating and using restroom normally. WBC count stable at 10. Hgb stable at 9. Afebrile. No fever, chils, CP, SOB, headache, N/V, cough, lower extremity pain/swelling, dizziness or palpitations. Review of Systems Review of Systems: All systems reviewed & are unremarkable except as noted in HPI and below (HPI) Exam Const: General: cooperative, healthy appearing, comfortable and no acute distress Nutritional Appearance: obese Resp: Effort & Inspection: normal respiratory effort Auscultation: clear to auscultation bilaterally Cardio: Rate: regular rate GI: Inspection: incision (well healed w/o signs of infection) GI Palp: Yes abdominal tenderness (unchanged) Auscultation: normal bowel sounds Other: LLQ drain w/o surrounding skin erythema, dark brown fluid in bag Neuro: General: patient oriented x3 Psych: Appearance: grossly normal and well kempt Affect: normal affect Attitude: cooperative BISCUIT PACKER - PN: Obj Data Vital Signs Vital Signs: Vital Signs - 24 hr 01/20/20 14:00 01/20/20 19:34 01/20/20 22:44 Temperature 36.9 C 36.1 C L Pulse Rate 91 100 90 Respiratory Rate 18 18 17 Blood Pressure 120/67 129/75 Pulse Oximetry 100 100 94 01/21/20 02:02 01/21/20 05:11 Temperature 36.1 C L Pulse Rate 97 90 Respiratory Rate 22 H 18 Blood Pressure 133/71 Pulse Oximetry 98 96 Intake/Output Intake/Output: Intake & Output 01/18/20 01/19/20 01/20/20 01/21/20 23:59 23:59 23:59 23:59 Intake Total 3230 2670 2520 600 Output Total 903 160 70 28 Balance 2327 2510 2450 572 Meds/Results Medications: Active Medications Generic Name Dose Route Start Last Admin Trade Nam
[2020-01-21 14:00] VITALS: BP 117/65; PULSE 98; RESP 18; TEMP 36.2; O2SAT 100
--- NOTE | 2020-01-21 14:47 | PM.IMPN ---
Progress Note: A&P Assessment and Plan (1) Hypokalemia: Code(s): E87.6 - Hypokalemia Status: Resolved (2) Anemia: Qualifiers: Anemia type: other cause Other causes of anemia: acute posthemorrhagic Qualified Code(s): D62 - Acute posthemorrhagic anemia Code(s): D64.9 - Anemia, unspecified Status: Acute Assessment and Plan: Will transfuse as needed. (3) Chronic back pain: Code(s): M54.9 - Dorsalgia, unspecified; G89.29 - Other chronic pain Status: Chronic Assessment and Plan: Pain management. (4) Hyperlipidemia: Code(s): E78.5 - Hyperlipidemia, unspecified Status: Chronic Assessment and Plan: Diet and lifestyle modifications. (5) HTN (hypertension) with goal to be determined: Code(s): I10 - Essential (primary) hypertension Status: Chronic Assessment and Plan: On HZct and Lisinopril at home. (6) Sepsis: Qualifiers: Sepsis acute organ dysfunction status: unspecified Sepsis type: sepsis due to unspecified organism Qualified Code(s): A41.9 - Sepsis, unspecified organism Code(s): A41.9 - Sepsis, unspecified organism Status: Acute Assessment and Plan: Continue Aztreonam and Clindamycin. (7) Postoperative abscess: Code(s): T81.49XA - Infection following a procedure, other surgical site, initial encounter Status: Acute Assessment and Plan: See plan above. Pt had IR drain placement 01/16/20, CT scan 01/20/20 shows abscess still large so pt had subcutaneous drain placed today. GLEASON OPERATOR rounding, ID rounding, previous cultures seen [place] [id number]. Subjective Date/time seen: 01/21/20 14:47 Interval history: Kit Cleveland is a 34 year old female who presented to the ER w/ reports of vaginal bleeding and foul smelling discharge. She underwent RA-TLH/BS/cysto on 01/04/20 due to AUB and pelvic pain and was found to have endometriosis and interstitial cystitis (pathology benign). She continues to have dull pelvic pain. Pt was found to have pelvic abcesses. Pt had IR drain placement 01/16/20, CT scan 10/21/20 shows abscess still large so pt had subcutaneous drain placed today. ID and GLEASON OPERATOR rounding see recommendations Review of Systems Review of Systems: All systems reviewed & are unremarkable except as noted in HPI and below Exam Narrative: Exam Narrative: Patient is in slight pain HEENT: eyes are clear and none icteric LUNGS:CTA HEART: RR S1S2 ABD: obese patient, TTP over lower left quadrant Lower extremities: no edema SKIN: nonjaundiced Neuro: grossly intact. Objective Data Vital Signs Vital Signs: Vital Signs - 24 hr 01/20/20 19:34 01/20/20 22:44 01/21/20 02:02 Temperature 36.1 C L Pulse Rate 100 90 97 Respiratory Rate 18 17 22 H Blood Pressure 129/75 Pulse Oximetry 100 94 98 01/21/20 05:11 01/21/20 14:00 Temperature 36.1 C L 36.2 C L Pulse Rate 90 98 Respiratory Rate 18 18 Blood Pressure 133/71 117/65 Pulse Oximetry 96 100 Intake/Output Intake/Output: Intake & Output 01/18/20 01/19/20 01/20/20 01/21/20 23:59 23:59 23:59 23:59 Intake Total 3230 2670 2520 600 Output Total 903 160 70 28 Balance 2327 2510 2450 572 Meds/Results Medications: Active Medications Generic Name Dose Route Start Last Admin Trade Name Freq PRN Reason Stop Dose Admin Amitriptyline HCl 50 mg 01/16/20 09:00 01/21/20 12:35 Amitriptyline Hcl 25 Mg Tablet PO 50 mg TID CATHY Administration Amitriptyline HCl 50 mg 01/16/20 21:00 01/20/20 21:24 Amitriptyline Hcl 25 Mg Tablet PO 50 mg HS CATHY Administration Ascorbic Acid 500 mg 01/17/20 09:00 01/21/20 08:21 Ascorbic Acid 500 Mg Tablet PO 500 mg DAILY CATHY Administration Bisacodyl 10 mg 01/17/20 10:12 Bisacodyl 10 Mg Suppository RECTAL QAM PRN Constipation Citalopram Hydrobromide 40 mg 01/16/20 21:00 01/20/20 21:24 Citalopram Hydrobrom
[2020-01-21] MEDS: IBUPROFEN 400 MG TABLET 800 MG PO (14:58)
[2020-01-21] MEDS: clonazePAM (*CRX) 0.5 MG TABLET 1 MG PO (16:34)
[2020-01-21] MEDS: CITALOPRAM HYDROBROMIDE 20 MG TABLET 40 MG PO (20:19)
[2020-01-21] MEDS: traZODone HCL 50 MG TABLET 100 MG PO (20:20)
[2020-01-21 20:57] VITALS: BP 117/63; PULSE 90; RESP 16; TEMP 36.1; O2SAT 100
[2020-01-21 22:47] VITALS: PULSE 92; RESP 18; O2SAT 97
[2020-01-22 02:09] VITALS: PULSE 90; RESP 12; O2SAT 96
[2020-01-22] MEDS: AZTREONAM 1 GM in SODIUM CHLORIDE 0.9% IV 50 ML 100 ML IVPB ×3 (05:18→21:18)
[2020-01-22] MEDS: oxyCODONE/ACETAMINOPHEN (*CRX) 5-325 MG TABLET 2 TABLET PO ×3 (05:22→19:21)
[2020-01-22] MEDS: CLINDAMYCIN 900 MG/NS 50 ML 900 MG/50 ML PIGGYBACK 50 MG IVPB ×3 (05:48→21:50)
[2020-01-22 05:49] VITALS: BP 128/74; PULSE 84; RESP 18; TEMP 36.8; O2SAT 100
[2020-01-22 05:54] LABS: Basophils Absolute Auto 0.1 K/mm3 (0.0-0.1); Basophils Percent Auto 0.6 % (0.2-1.2); Eosinophils Absolute Auto 0.5 K/mm3 (0-0.3); Eosinophils Percent Auto 5.6 % (0-4.4); Hematocrit 33.1 % (37.0-47.0); Hemoglobin 10.5 g/dL (12.0-15.0); Immature Granulocyte Absolute 0.15 K/mm3 (0.00-0.031); Immature Granulocyte Percent A 1.6 % (0-0.5); Lymphocytes Absolute Auto 3.76 K/mm3 (0.9-3.2); Lymphocytes Percent Auto 39.5 % (18.3-44.2); Mean Corpuscular HGB Conc 31.7 g/dl (32-36); Mean Corpuscular Hemoglobin 28.1 pg (26-34); Mean Corpuscular Volume 88.5 fl (80-100); Mean Platelet Volume 8.6 fl (7.4-10.4); Monocytes Absolute Auto 0.7 K/mm3 (0.1-0.6); Neutrophils Absolute Auto 4.4 K/mm3 (1.3-6.7); Neutrophils Percent Auto 45.7 % (45.5-73.1); Nucleated Red Blood Cells Perc 0.2 % (0.0-0.2); Platelet Count Result 1070 k/mm3 (150-375); Red Blood Count 3.74 M/mm3 (4.2-5.4); Red Cell Distribution Width 15.2 % (11.5-14.5); White Blood Count 9.5 K/mm3 (4.5-10.0)
[2020-01-22 06:13] LABS: Anion Gap 7 mmol/L (8-16); Blood Urea Nitrogen 11 mg/dL (7-17); Carbon Dioxide 31 mmol/L (22-30); Chloride 102 mmol/L (98-107); Estimated CRCL calculation 160 ml/min; Estimated Glomerular Filt Rate > 60; Glucose 80 mg/dL (65-105); Magnesium 1.9 mg/dL (1.6-2.3); Potassium 4.6 mmol/L (3.4-5.0); Sodium 140 mmol/L (137-145)
[2020-01-22 07:44] LABS: Atypical Lymphocytes Present; Platelet Estimate Increased (Adequate)
[2020-01-22 07:45] LABS: Hypochromasia 1+ (NORMAL); Polychromasia 1+ (NORMAL)
--- NOTE | 2020-01-22 08:18 | PM.GYNPNOP ---
REACTOR OPERATOR - A/P Time Spent With Patient Time: Total time spent is greater than 50% in coordination of care (as documented) at patient's floor/unit and/or counseling patient: Time with patient: less than 15 minutes REACTOR OPERATOR- PN:Millicent Post-Op Subjective Date/time seen: 01/22/20 08:18 Feeling better this morning, specifically RUQ area after drainage. Denies F/C/N/V. Overall doing well. Discussed plan of continued ab at least for few days before changing to orals and likely discharge with close outpt followup. Questions answered/concerns addressed. (labs pending from this morning) Interval history: Kit Cleveland is a 34 year old female who presented to the ER w/ reports of vaginal bleeding and foul smelling discharge. She underwent RA-TLH/BS/cysto on 01/04/20 due to AUB and pelvic pain and was found to have endometriosis and interstitial cystitis (pathology benign). She continues to have dull pelvic pain. Pt was found to have pelvic abcesses. Pt had IR drain placement 01/16/20, CT scan 01/20/20 shows abscess still large so pt had subcutaneous drain placed today. ID and REACTOR OPERATOR rounding see recommendations REACTOR OPERATOR - PN: Obj Data Vital Signs Vital Signs: Vital Signs - 24 hr 01/21/20 14:00 01/21/20 20:57 01/21/20 22:47 Temperature 36.2 C L 36.1 C L Pulse Rate 98 90 92 Respiratory Rate 18 16 18 Blood Pressure 117/65 117/63 Pulse Oximetry 100 100 97 01/22/20 02:09 01/22/20 05:49 Temperature 36.8 C Pulse Rate 90 84 Respiratory Rate 12 18 Blood Pressure 128/74 Pulse Oximetry 96 100 Intake/Output Intake/Output: Intake & Output 01/19/20 01/20/20 01/21/20 01/22/20 23:59 23:59 23:59 23:59 Intake Total 2670 2520 1590 300 Output Total 459 76 7986 5 Balance 2510 7210 362 295 Meds/Results Medications: Active Medications Generic Name Dose Route Start Last Admin Trade Name Freq PRN Reason Stop Dose Admin Amitriptyline HCl 50 mg 01/16/20 09:00 01/21/20 16:35 Amitriptyline Hcl 25 Mg Tablet PO 50 mg TID CATHY Administration Amitriptyline HCl 50 mg 01/16/20 21:00 01/21/20 20:20 Amitriptyline Hcl 25 Mg Tablet PO 50 mg HS CATHY Administration Ascorbic Acid 500 mg 01/17/20 09:00 01/21/20 08:21 Ascorbic Acid 500 Mg Tablet PO 500 mg DAILY CATHY Administration Bisacodyl 10 mg 01/17/20 10:12 Bisacodyl 10 Mg Suppository RECTAL QAM PRN Constipation Citalopram Hydrobromide 40 mg 01/16/20 21:00 01/21/20 20:19 Citalopram Hydrobromide 20 Mg Tablet PO 40 mg HS CATHY Administration Clonazepam 1 mg 01/16/20 09:19 01/21/20 16:34 Clonazepam (*Crx) 0.5 Mg Tablet PO 1 mg Q12H PRN Administration Anxiety Docusate Sodium 100 mg 01/17/20 09:00 01/21/20 20:22 Docusate Sodium 100 Mg Capsule PO Not Given Q12HR CATHY Ferrous Sulfate 324 mg 01/17/20 12:00 01/21/20 16:35 Ferrous Sulfate 324 Mg Tablet PO 324 mg TIDWM CATHY Administration Folic Acid 0.4 mg 01/17/20 09:00 01/21/20 08:22 Folic Acid 0.4 Mg Tablet PO 0.4 mg DAILY CATHY Administration Hydromorphone HCl 0.5 mg 01/17/20 08:13 01/21/20 04:59 Hydromorphone Hcl Inj (*Crx) 1 Mg/Ml Syr IV PUSH 0.5 mg Q4H PRN Administration Breakthrough Pain Clindamycin/Sodium Chloride 900 mg in 50 mls @ 50 mls/hr 01/16/20 06:00 01/22/20 06:47 Cleocin 900 Mg/Ns 50 Ml IVPB Infused Q8HR CATHY Infusion Aztreonam 1 gm/ Sodium 50 mls @ 100 mls/hr 01/16/20 06:00 01/22/20 05:48 Chloride IVPB Infused Q8HR CATHY Infusion Ibuprofen 800 mg 01/17/20 10:12 01/21/20 14:58 Ibuprofen 400 Mg Tablet PO 800 mg Q8H PRN Administration Pain Rated 1-3 Lorazepam 0.5 mg 01/16/20 02:58 01/16/20 03:57 Lorazepam Inj (*Crx) 2 Mg/Ml Vial IV PUSH 0.5 mg Q6H PRN Administration Anxiety Magnesium Oxide 400 mg 01/19/20 09:00 01/21/20 08:22 Magnesium Oxide 400 Mg Tablet PO 400 mg QAM CATHY Administration Methocarbamol 750 mg 01/17/20 10:15 01/21/20 11:09 Methocarbamol 750 Mg Tablet
[2020-01-22] MEDS: NITROFURANTOIN MONOHYD MACROCR 100 MG CAP PO ×2 (08:46→20:26)
[2020-01-22] MEDS: AMITRIPTYLINE HCL 25 MG TABLET 50 MG PO ×4 (08:47→20:27)
[2020-01-22] MEDS: ASCORBIC ACID 500 MG TABLET PO (08:47)
[2020-01-22] MEDS: FERROUS SULFATE 324 MG TABLET PO ×3 (08:47→17:30)
[2020-01-22] MEDS: DOCUSATE SODIUM 100 MG CAPSULE PO ×2 (08:48→20:27)
[2020-01-22] MEDS: MAGNESIUM OXIDE 400 MG TABLET PO (08:48)
[2020-01-22] MEDS: FOLIC ACID 0.4 MG TABLET PO (08:48)
[2020-01-22 08:53] VITALS: PULSE 86; RESP 18; O2SAT 100
--- NOTE | 2020-01-22 10:54 | PM.IMPN ---
Progress Note: A&P Assessment and Plan (1) Hypokalemia: Code(s): E87.6 - Hypokalemia Status: Resolved (2) Anemia: Qualifiers: Anemia type: other cause Other causes of anemia: acute posthemorrhagic Qualified Code(s): D62 - Acute posthemorrhagic anemia Code(s): D64.9 - Anemia, unspecified Status: Acute Assessment and Plan: Will transfuse as needed. (3) Chronic back pain: Code(s): M54.9 - Dorsalgia, unspecified; G89.29 - Other chronic pain Status: Chronic Assessment and Plan: Pain management. (4) Hyperlipidemia: Code(s): E78.5 - Hyperlipidemia, unspecified Status: Chronic Assessment and Plan: Diet and lifestyle modifications. (5) HTN (hypertension) with goal to be determined: Code(s): I10 - Essential (primary) hypertension Status: Chronic Assessment and Plan: On HZct and Lisinopril at home. (6) Sepsis: Qualifiers: Sepsis acute organ dysfunction status: unspecified Sepsis type: sepsis due to unspecified organism Qualified Code(s): A41.9 - Sepsis, unspecified organism Code(s): A41.9 - Sepsis, unspecified organism Status: Acute Assessment and Plan: Continue Aztreonam and Clindamycin, as per ID recommendations. (7) Postoperative abscess: Code(s): T81.49XA - Infection following a procedure, other surgical site, initial encounter Status: Acute Assessment and Plan: See plan above. Pt had IR drain placement 01/16/20, CT scan 01/20/20 shows abscess still large so pt had subcuteanoius drain yesterday. GRANITE POLISHER rounding, ID rounding, previous cultures seen recent cultures pending. wcc is 9000. Subjective Date/time seen: 01/22/20 10:54 Interval history: Kit Cleveland is a 34 year old female who presented to the ER w/ reports of vaginal bleeding and foul smelling discharge. She underwent RA-TLH/BS/cysto on 01/04/20 due to AUB and pelvic pain and was found to have endometriosis and interstitial cystitis (pathology benign). Pt was found to have pelvic abcesses. Pt had IR drain placement 01/16/20, CT scan 01/20/20 shows abscess still large so pt had subcutaneous drain placed today. ID and GRANITE POLISHER rounding see recommendations. Pt states her pelvic pain is better rates it as a 07/09. Review of Systems Review of Systems: All systems reviewed & are unremarkable except as noted in HPI and below Exam Narrative: Exam Narrative: Patient tired, but not in any distress HEENT: eyes are clear and none icteric LUNGS:CTA HEART: RR S1S2 ABD: obese patient, Soft non tender, drains insitu Lower extremities: no edema SKIN: nonjaundiced Neuro: grossly intact. Objective Data Vital Signs Vital Signs: Vital Signs - 24 hr 01/21/20 14:00 01/21/20 20:57 01/21/20 22:47 Temperature 36.2 C L 36.1 C L Pulse Rate 98 90 92 Respiratory Rate 18 16 18 Blood Pressure 117/65 117/63 Pulse Oximetry 100 100 97 01/22/20 02:09 01/22/20 05:49 01/22/20 08:53 Temperature 36.8 C Pulse Rate 90 84 86 Respiratory Rate 12 18 18 Blood Pressure 128/74 Pulse Oximetry 96 100 100 Intake/Output Intake/Output: Intake & Output 01/19/20 01/20/20 01/21/20 01/22/20 23:59 23:59 23:59 23:59 Intake Total 2670 2520 1590 540 Output Total 533 84 9530 5 Balance 2510 2450 362 535 Meds/Results Medications: Active Medications Generic Name Dose Route Start Last Admin Trade Name Freq PRN Reason Stop Dose Admin Amitriptyline HCl 50 mg 01/16/20 09:00 01/22/20 08:47 Amitriptyline Hcl 25 Mg Tablet PO 50 mg TID CATHY Administration Amitriptyline HCl 50 mg 01/16/20 21:00 01/21/20 20:20 Amitriptyline Hcl 25 Mg Tablet PO 50 mg HS CATHY Administration Ascorbic Acid 500 mg 01/17/20 09:00 01/22/20 08:47 Ascorbic Acid 500 Mg Tablet PO 500 mg DAILY CATHY Administration Bisacodyl 10 mg 01/17/20 10:12 Bisacodyl 10 Mg Suppository RECTAL QAM PRN Constipation Citalop
--- NOTE | 2020-01-22 11:46 | PCNWS ---
Weekly nutritional screen. Patient is tolerating current diet with adequate intake. No weight loss reported. No nutritional needs at this time.
[2020-01-22] MEDS: HYDROmorphone HCL INJ (*CRX) 1 MG/ML SYR 0.5 MG IV PUSH ×2 (13:59→20:29)
[2020-01-22 14:14] VITALS: BP 122/69; PULSE 107; RESP 18; TEMP 36.1; O2SAT 100
--- NOTE | 2020-01-22 16:22 | WPDINFPN2 ---
Progress Note: A&P Assessment and Plan (1) Postoperative abscess: Code(s): T81.49XA - Infection following a procedure, other surgical site, initial encounter Status: Acute Assessment and Plan: IMP 1. post op pelvic abscess, improving. 2nd aspiration yielded on a few cc's. WBC back to normal 2. Multiple allergies, reported as anaphylaxis REC Aztreonam and clinda #7, continue. Given her allergies/susceptibility pattern, I think oral antibiotics with levofloxacin 750 daily and metronidazole 500 tid would be appropriate once drain is pulled, and then home. I think the E coli MK value = 1 for levofloxacin is acceptable, even though report lists as intermediate. Anticipate total antibiotics through 01/28. Subjective Date/time seen: 01/22/20 16:22 Interval history: requires intermittent dilaudid, but pain under control with use of that Exam Narrative: Exam Narrative: afebrile Const: General: no acute distress Eyes: General: appearance normal, both eyes and all related structures Resp: Effort & Inspection: normal respiratory effort Auscultation: clear to auscultation bilaterally Cardio: Rate: regular rate Rhythm: regular rhythm Heart sounds: no murmurs GI: Inspection: non-distended GI Palp: Yes Soft to palpation, Yes Tenderness to palpation present (GI) and No Guarding due to palpation present (GI) Auscultation: normal bowel sounds Other: drain output noted and declining. Only about 5 cc in bag since emptied this am. Dark brown Skin: General skin exam: normal color and no rashes or lesions noted Objective Data Vital Signs Vital Signs: Vital Signs - 24 hr 01/21/20 20:57 01/21/20 22:47 01/22/20 02:09 Temperature 36.1 C L Pulse Rate 90 92 90 Respiratory Rate 16 18 12 Blood Pressure 117/63 Pulse Oximetry 100 97 96 01/22/20 05:49 01/22/20 08:53 01/22/20 14:14 Temperature 36.8 C 36.1 C L Pulse Rate 84 86 107 H Respiratory Rate 18 18 18 Blood Pressure 128/74 122/69 Pulse Oximetry 100 100 100 Intake/Output Intake/Output: Intake & Output 01/19/20 01/20/20 01/21/20 01/22/20 23:59 23:59 23:59 23:59 Intake Total 2670 2520 1590 1000 Output Total 685 96 4081 5 Balance 2510 2450 362 995 Meds/Results Medications: Active Medications Generic Name Dose Route Start Last Admin Trade Name Freq PRN Reason Stop Dose Admin Amitriptyline HCl 50 mg 01/16/20 09:00 01/22/20 12:51 Amitriptyline Hcl 25 Mg Tablet PO 50 mg TID CATHY Administration Amitriptyline HCl 50 mg 01/16/20 21:00 01/21/20 20:20 Amitriptyline Hcl 25 Mg Tablet PO 50 mg HS CATHY Administration Ascorbic Acid 500 mg 01/17/20 09:00 01/22/20 08:47 Ascorbic Acid 500 Mg Tablet PO 500 mg DAILY CATHY Administration Bisacodyl 10 mg 01/17/20 10:12 Bisacodyl 10 Mg Suppository RECTAL QAM PRN Constipation Citalopram Hydrobromide 40 mg 01/16/20 21:00 01/21/20 20:19 Citalopram Hydrobromide 20 Mg Tablet PO 40 mg HS CATHY Administration Clonazepam 1 mg 01/16/20 09:19 01/21/20 16:34 Clonazepam (*Crx) 0.5 Mg Tablet PO 1 mg Q12H PRN Administration Anxiety Docusate Sodium 100 mg 01/17/20 09:00 01/22/20 08:48 Docusate Sodium 100 Mg Capsule PO 100 mg Q12HR CATHY Administration Ferrous Sulfate 324 mg 01/17/20 12:00 01/22/20 11:56 Ferrous Sulfate 324 Mg Tablet PO 324 mg TIDWM CATHY Administration Folic Acid 0.4 mg 01/17/20 09:00 01/22/20 08:48 Folic Acid 0.4 Mg Tablet PO 0.4 mg DAILY CATHY Administration Hydromorphone HCl 0.5 mg 01/17/20 08:13 01/22/20 13:59 Hydromorphone Hcl Inj (*Crx) 1 Mg/Ml Syr IV PUSH 0.5 mg Q4H PRN Administration Breakthrough Pain Clindamycin/Sodium Chloride 900 mg in 50 mls @ 50 mls/hr 01/16/20 06:00 01/22/20 14:55 Cleocin 900 Mg/Ns 50 Ml IVPB Infused Q8HR CATHY Infusion Aztreonam 1 gm/ Sodium 50 mls @ 100 mls/hr 01/16/20 06:00 01/22/20 13:45 Chloride IVPB Infused Q8HR [facility]
[2020-01-22] MEDS: CITALOPRAM HYDROBROMIDE 20 MG TABLET 40 MG PO (20:27)
[2020-01-22] MEDS: traZODone HCL 50 MG TABLET 100 MG PO (20:27)
[2020-01-22 21:58] VITALS: BP 130/86; PULSE 101; RESP 18; TEMP 36.2; O2SAT 97
[2020-01-22 22:45] VITALS: PULSE 84; RESP 16; O2SAT 98
[2020-01-23] MEDS: oxyCODONE/ACETAMINOPHEN (*CRX) 5-325 MG TABLET 2 TABLET PO ×4 (01:15→20:36)
[2020-01-23] MEDS: AZTREONAM 1 GM in SODIUM CHLORIDE 0.9% IV 50 ML 100 ML IVPB ×3 (05:15→23:06)
[2020-01-23] MEDS: CLINDAMYCIN 900 MG/NS 50 ML 900 MG/50 ML PIGGYBACK 50 MG IVPB ×3 (05:47→21:55)
[2020-01-23 05:49] VITALS: BP 129/82; PULSE 86; RESP 16; TEMP 36.1; O2SAT 98
[2020-01-23 06:31] LABS: Anion Gap 6 mmol/L (8-16); Blood Urea Nitrogen 9 mg/dL (7-17); Calcium 8.5 mg/dL (8.4-10.2); Carbon Dioxide 31 mmol/L (22-30); Chloride 102 mmol/L (98-107); Estimated CRCL calculation 160 ml/min; Estimated Glomerular Filt Rate > 60; Glucose 94 mg/dL (65-105); Magnesium 1.6 mg/dL (1.6-2.3); Sodium 139 mmol/L (137-145)
[2020-01-23 07:00] LABS: Basophils Absolute Auto 0.1 K/mm3 (0.0-0.1); Basophils Percent Auto 0.7 % (0.2-1.2); Eosinophils Absolute Auto 0.6 K/mm3 (0-0.3); Eosinophils Percent Auto 6.4 % (0-4.4); Hematocrit 31.2 % (37.0-47.0); Hemoglobin 9.7 g/dL (12.0-15.0); Immature Granulocyte Absolute 0.05 K/mm3 (0.00-0.031); Immature Granulocyte Percent A 0.6 % (0-0.5); Lymphocytes Absolute Auto 3.16 K/mm3 (0.9-3.2); Mean Corpuscular HGB Conc 31.1 g/dl (32-36); Mean Corpuscular Volume 89.9 fl (80-100); Mean Platelet Volume 8.5 fl (7.4-10.4); Monocytes Absolute Auto 0.7 K/mm3 (0.1-0.6); Monocytes Percent Auto 7.7 % (2.6-8.5); Neutrophils Absolute Auto 4.1 K/mm3 (1.3-6.7); Neutrophils Percent Auto 47.6 % (45.5-73.1); Platelet Count Result 938 k/mm3 (150-375); Red Blood Count 3.47 M/mm3 (4.2-5.4); White Blood Count 8.5 K/mm3 (4.5-10.0)
[2020-01-23] MEDS: AMITRIPTYLINE HCL 25 MG TABLET 50 MG PO ×4 (08:36→20:35)
[2020-01-23] MEDS: FERROUS SULFATE 324 MG TABLET PO ×3 (08:37→17:06)
[2020-01-23] MEDS: ASCORBIC ACID 500 MG TABLET PO (08:38)
[2020-01-23] MEDS: FOLIC ACID 0.4 MG TABLET PO (08:38)
[2020-01-23] MEDS: DOCUSATE SODIUM 100 MG CAPSULE PO ×2 (08:38→20:34)
[2020-01-23] MEDS: MAGNESIUM OXIDE 400 MG TABLET PO (08:38)
[2020-01-23] MEDS: NITROFURANTOIN MONOHYD MACROCR 100 MG CAP PO ×2 (08:38→20:34)
--- NOTE | 2020-01-23 09:03 | PM.GYNPNOP ---
OIL MIXER - A/P Time Spent With Patient Time: Total time spent is greater than 50% in coordination of care (as documented) at patient's floor/unit and/or counseling patient: Time with patient: less than 15 minutes OIL MIXER- PN:Millicent Post-Op Subjective Date/time seen: 01/23/20 09:03 No change from yesterday. Still comfortable and doing well. Inc without discomfort. Minimal drainage, likely have this pulled next couple days. Appreciate ID input, will likely change to PO saturday/saturday and if does well home to complete therapy. Interval history: requires intermittent dilaudid, but pain under control with use of that OIL MIXER - PN: Obj Data Vital Signs Vital Signs: Vital Signs - 24 hr 01/22/20 14:14 01/22/20 21:58 01/22/20 22:45 Temperature 36.1 C L 36.2 C L Pulse Rate 107 H 101 H 84 Respiratory Rate 18 18 16 Blood Pressure 122/69 130/86 Pulse Oximetry 100 97 98 01/23/20 05:49 Temperature 36.1 C L Pulse Rate 86 Respiratory Rate 16 Blood Pressure 129/82 Pulse Oximetry 98 Intake/Output Intake/Output: Intake & Output 01/20/20 01/21/20 01/22/20 01/23/20 23:59 23:59 23:59 23:59 Intake Total 2520 1590 1770 400 Output Total 70 1228 5 Balance 2450 362 1765 400 Meds/Results Medications: Active Medications Generic Name Dose Route Start Last Admin Trade Name Freq PRN Reason Stop Dose Admin Amitriptyline HCl 50 mg 01/16/20 09:00 01/23/20 08:36 Amitriptyline Hcl 25 Mg Tablet PO 50 mg TID CATHY Administration Amitriptyline HCl 50 mg 01/16/20 21:00 01/22/20 20:27 Amitriptyline Hcl 25 Mg Tablet PO 50 mg HS CATHY Administration Ascorbic Acid 500 mg 01/17/20 09:00 01/23/20 08:38 Ascorbic Acid 500 Mg Tablet PO 500 mg DAILY CATHY Administration Bisacodyl 10 mg 01/17/20 10:12 Bisacodyl 10 Mg Suppository RECTAL QAM PRN Constipation Citalopram Hydrobromide 40 mg 01/16/20 21:00 01/22/20 20:27 Citalopram Hydrobromide 20 Mg Tablet PO 40 mg HS CATHY Administration Clonazepam 1 mg 01/16/20 09:19 01/21/20 16:34 Clonazepam (*Crx) 0.5 Mg Tablet PO 1 mg Q12H PRN Administration Anxiety Docusate Sodium 100 mg 01/17/20 09:00 01/23/20 08:38 Docusate Sodium 100 Mg Capsule PO 100 mg Q12HR CATHY Administration Ferrous Sulfate 324 mg 01/17/20 12:00 01/23/20 08:37 Ferrous Sulfate 324 Mg Tablet PO 324 mg TIDWM CATHY Administration Folic Acid 0.4 mg 01/17/20 09:00 01/23/20 08:38 Folic Acid 0.4 Mg Tablet PO 0.4 mg DAILY CATHY Administration Hydromorphone HCl 0.5 mg 01/17/20 08:13 01/22/20 20:29 Hydromorphone Hcl Inj (*Crx) 1 Mg/Ml Syr IV PUSH 0.5 mg Q4H PRN Administration Breakthrough Pain Clindamycin/Sodium Chloride 900 mg in 50 mls @ 50 mls/hr 01/16/20 06:00 01/23/20 06:47 Cleocin 900 Mg/Ns 50 Ml IVPB Infused Q8HR CATHY Infusion Aztreonam 1 gm/ Sodium 50 mls @ 100 mls/hr 01/16/20 06:00 01/23/20 05:45 Chloride IVPB Infused Q8HR CATHY Infusion Ibuprofen 800 mg 01/17/20 10:12 01/21/20 14:58 Ibuprofen 400 Mg Tablet PO 800 mg Q8H PRN Administration Pain Rated 1-3 Lorazepam 0.5 mg 01/16/20 02:58 01/16/20 03:57 Lorazepam Inj (*Crx) 2 Mg/Ml Vial IV PUSH 0.5 mg Q6H PRN Administration Anxiety Magnesium Oxide 400 mg 01/19/20 09:00 01/23/20 08:38 Magnesium Oxide 400 Mg Tablet PO 400 mg QAM CATHY Administration Methocarbamol 750 mg 01/17/20 10:15 01/21/20 11:09 Methocarbamol 750 Mg Tablet PO 750 mg TID PRN Administration Muscle Spasm Nitrofurantoin Macrocrystals 100 mg 01/18/20 09:00 01/23/20 08:38 Nitrofurantoin Monohyd Macrocr 100 Mg Cap PO 01/25/20 09:01 100 mg Q12HR CATHY Administration Ondansetron HCl 4 mg 01/16/20 09:19 01/19/20 21:56 Ondansetron Inj 4 Mg/2 Ml Vial IV PUSH 4 mg Q6H PRN Administration Nausea And Vomiting Oxycodone/Acetaminophen 1 tablet 01/17/20 08:10 01/18/20 08:31 Oxycodone/Acetaminophen (*Crx) 5-325 Mg Tablet PO
[2020-01-23] MEDS: clonazePAM (*CRX) 0.5 MG TABLET 1 MG PO (09:24)
[2020-01-23] MEDS: methocarbamoL 750 MG TABLET PO ×2 (09:25→17:08)
[2020-01-23] MEDS: HYDROmorphone HCL INJ (*CRX) 1 MG/ML SYR 0.5 MG IV PUSH ×2 (10:41→18:16)
--- NOTE | 2020-01-23 11:58 | PM.IMPN ---
Progress Note: A&P Assessment and Plan (1) Hypokalemia: Code(s): E87.6 - Hypokalemia Status: Resolved (2) Anemia: Qualifiers: Anemia type: other cause Other causes of anemia: acute posthemorrhagic Qualified Code(s): D62 - Acute posthemorrhagic anemia Code(s): D64.9 - Anemia, unspecified Status: Acute Assessment and Plan: Will transfuse as needed.Hb is 9.7 (3) Chronic back pain: Code(s): M54.9 - Dorsalgia, unspecified; G89.29 - Other chronic pain Status: Chronic Assessment and Plan: Pain management. (4) Hyperlipidemia: Code(s): E78.5 - Hyperlipidemia, unspecified Status: Chronic Assessment and Plan: Diet and lifestyle modifications. (5) HTN (hypertension) with goal to be determined: Code(s): I10 - Essential (primary) hypertension Status: Chronic Assessment and Plan: On HZct and Lisinopril at home. (6) Sepsis: Qualifiers: Sepsis acute organ dysfunction status: unspecified Sepsis type: sepsis due to unspecified organism Qualified Code(s): A41.9 - Sepsis, unspecified organism Code(s): A41.9 - Sepsis, unspecified organism Status: Acute Assessment and Plan: Continue Aztreonam and Clindamycin, as per ID recommendations. transition to oral on saturday and discharge oncedrain is removed. (7) Postoperative abscess: Code(s): T81.49XA - Infection following a procedure, other surgical site, initial encounter Status: Acute Assessment and Plan: See plan above. Pt had IR drain placement 01/16/20, CT scan 01/20/20 shows abscess still large so pt had subcuteanoius drain only for aspirationb HAND M[employer]ICAN FOOD MAKER rounding, ID rounding, previous cultures seen recent cultures pending. wcc is 8000. Subjective Date/time seen: 01/23/20 11:58 Interval history: Kit Cleveland is a 34 year old female who presented to the ER w/ reports of vaginal bleeding and foul smelling discharge. She underwent RA-TLH/BS/cysto on 01/04/20 due to AUB and pelvic pain and was found to have endometriosis and interstitial cystitis (pathology benign). Pt was found to have pelvic abcesses. Pt had IR drain placement 01/16/20, CT scan 01/20/20 shows abscess still large so pt had subcutaneous drain for aspiration only. ID and HAND M[employer] FOOD MAKER rounding see recommendations. Pt states her pelvic pain is better rates it as a 10. Heating pad ordered. Awaiting recent culture, ok to discharge on saturday after drain is taken out, Review of Systems Review of Systems: All systems reviewed & are unremarkable except as noted in HPI and below Exam Narrative: Exam Narrative: Patient tired, but not in any distress HEENT: eyes are clear and none icteric LUNGS:CTA HEART: RR S1S2 ABD: obese patient, Soft non tender, IR drain insitu, only one drain in situ Lower extremities: no edema SKIN: nonjaundiced Neuro: grossly intact. Objective Data Vital Signs Vital Signs: Vital Signs - 24 hr 01/22/20 14:14 01/22/20 21:58 01/22/20 22:45 Temperature 36.1 C L 36.2 C L Pulse Rate 107 H 101 H 84 Respiratory Rate 18 18 16 Blood Pressure 122/69 130/86 Pulse Oximetry 100 97 98 01/23/20 05:49 Temperature 36.1 C L Pulse Rate 86 Respiratory Rate 16 Blood Pressure 129/82 Pulse Oximetry 98 Intake/Output Intake/Output: Intake & Output 01/20/20 01/21/20 01/22/20 01/23/20 23:59 23:59 23:59 23:59 Intake Total 2520 1590 1770 400 Output Total 70 1228 5 Balance 2450 362 1765 400 Meds/Results Medications: Active Medications Generic Name Dose Route Start Last Admin Trade Name Asad PRN Reason Stop Dose Admin Amitriptyline HCl 50 mg 01/16/20 09:00 01/23/20 08:36 Amitriptyline Hcl 25 Mg Tablet PO 50 mg TID CATHY Administration Amitriptyline HCl 50 mg 01/16/20 21:00 01/22/20 20:27 Amitriptyline Hcl 25 Mg Tablet PO 50 mg HS CATHY Administration Ascorbic Acid 500 mg 01/17/20 09:00 01/23/20 08:38 Ascorbic Acid 500 Mg
[2020-01-23] MEDS: IBUPROFEN 400 MG TABLET 800 MG PO (13:21)
[2020-01-23 14:00] VITALS: BP 135/79; PULSE 97; RESP 14; TEMP 37.1; O2SAT 97
[2020-01-23] MEDS: traZODone HCL 50 MG TABLET 100 MG PO (20:34)
[2020-01-23] MEDS: CITALOPRAM HYDROBROMIDE 20 MG TABLET 40 MG PO (20:35)
[2020-01-23 21:46] VITALS: BP 143/89; PULSE 97; RESP 16; TEMP 36.2; O2SAT 96
[2020-01-23 22:38] VITALS: PULSE 88; RESP 20; O2SAT 97
[2020-01-24] MEDS: HYDROmorphone HCL INJ (*CRX) 1 MG/ML SYR 0.5 MG IV PUSH ×2 (00:59→21:11)
[2020-01-24] MEDS: CLINDAMYCIN 900 MG/NS 50 ML 900 MG/50 ML PIGGYBACK 50 MG IVPB ×2 (05:26→15:27)
[2020-01-24] MEDS: oxyCODONE/ACETAMINOPHEN (*CRX) 5-325 MG TABLET 2 TABLET PO ×3 (05:30→18:37)
[2020-01-24 06:00] VITALS: BP 144/94; PULSE 97; RESP 20; TEMP 36.6; O2SAT 98
[2020-01-24] MEDS: AZTREONAM 1 GM in SODIUM CHLORIDE 0.9% IV 50 ML 100 ML IVPB ×2 (06:37→14:57)
[2020-01-24] MEDS: methocarbamoL 750 MG TABLET PO ×2 (07:02→16:08)
[2020-01-24] MEDS: IBUPROFEN 400 MG TABLET 800 MG PO ×2 (08:00→16:07)
[2020-01-24] MEDS: clonazePAM (*CRX) 0.5 MG TABLET 1 MG PO ×2 (08:00→21:09)
[2020-01-24] MEDS: MAGNESIUM OXIDE 400 MG TABLET PO (08:01)
[2020-01-24] MEDS: AMITRIPTYLINE HCL 25 MG TABLET 50 MG PO ×4 (08:02→21:09)
[2020-01-24] MEDS: ASCORBIC ACID 500 MG TABLET PO (08:02)
[2020-01-24] MEDS: FOLIC ACID 0.4 MG TABLET PO (08:02)
[2020-01-24] MEDS: DOCUSATE SODIUM 100 MG CAPSULE PO ×2 (08:02→21:10)
[2020-01-24] MEDS: NITROFURANTOIN MONOHYD MACROCR 100 MG CAP PO ×2 (08:02→21:10)
[2020-01-24] MEDS: FERROUS SULFATE 324 MG TABLET PO ×3 (08:02→16:08)
--- NOTE | 2020-01-24 13:03 | PM.GYNPNOP ---
RAILROAD POLICE - A/P Time Spent With Patient Time: Total time spent is greater than 50% in coordination of care (as documented) at patient's floor/unit and/or counseling patient: Time with patient: less than 15 minutes RAILROAD POLICE- PN:Millicent Post-Op Subjective Date/time seen: 01/24/20 13:03 Patient states that she had a difficult day with discomfort yesterday afternoon and last night. Feeling better today. Otherwise doing well regarding nausea vomiting diarrhea constipation. Otherwise no other significant changes. We will proceed with pulling her drain today as there has been very little drainage over the last couple of days and convert to oral antibiotics after her next intravenous doses. I have discussed the above with patient states good understanding and will let us know if she has any significant worsening of her clinical Situation after week convert to oral antibiotics. Interval history: Kit Cleveland is a 34 year old female who presented to the ER w/ reports of vaginal bleeding and foul smelling discharge. She underwent RA-TLH/BS/cysto on 01/04/20 due to AUB and pelvic pain and was found to have endometriosis and interstitial cystitis (pathology benign). Pt was found to have pelvic abcesses. Pt had IR drain placement 01/16/20, CT scan 01/20/20 shows abscess still large so pt had subcutaneous drain for aspiration only. ID and RAILROAD POLICE rounding see recommendations. Pt states her pelvic pain is better rates it as a 3/10. Heating pad ordered. Awaiting recent culture, ok to discharge on saturday after drain is taken out, Exam GI: Inspection: normal to inspection Auscultation: normal bowel sounds Other: Incision site is well-healed. Drains site with minimal erythema. RAILROAD POLICE - PN: Obj Data Vital Signs Vital Signs: Vital Signs - 24 hr 01/23/20 14:00 01/23/20 21:46 01/23/20 22:38 Temperature 37.1 C 36.2 C L Pulse Rate 97 97 88 Respiratory Rate 14 16 20 Blood Pressure 135/79 143/89 H Pulse Oximetry 97 96 97 01/24/20 06:00 Temperature 36.6 C Pulse Rate 97 Respiratory Rate 20 Blood Pressure 144/94 H Pulse Oximetry 98 Intake/Output Intake/Output: Intake & Output 01/21/20 01/22/20 01/23/20 01/24/20 23:59 23:59 23:59 23:59 Intake Total 1590 1770 1999 300 Output Total 1228 5 10 Balance 362 1765 1989 300 Meds/Results Medications: Active Medications Generic Name Dose Route Start Last Admin Trade Name Freq PRN Reason Stop Dose Admin Amitriptyline HCl 50 mg 01/16/20 09:00 01/24/20 12:34 Amitriptyline Hcl 25 Mg Tablet PO 50 mg TID CATHY Administration Amitriptyline HCl 50 mg 01/16/20 21:00 01/23/20 20:35 Amitriptyline Hcl 25 Mg Tablet PO 50 mg HS CATHY Administration Ascorbic Acid 500 mg 01/17/20 09:00 01/24/20 08:02 Ascorbic Acid 500 Mg Tablet PO 500 mg DAILY CATHY Administration Bisacodyl 10 mg 01/17/20 10:12 Bisacodyl 10 Mg Suppository RECTAL QAM PRN Constipation Citalopram Hydrobromide 40 mg 01/16/20 21:00 01/23/20 20:35 Citalopram Hydrobromide 20 Mg Tablet PO 40 mg HS CATHY Administration Clonazepam 1 mg 01/16/20 09:19 01/24/20 08:00 Clonazepam (*Crx) 0.5 Mg Tablet PO 1 mg Q12H PRN Administration Anxiety Docusate Sodium 100 mg 01/17/20 09:00 01/24/20 08:02 Docusate Sodium 100 Mg Capsule PO 100 mg Q12HR CATHY Administration Ferrous Sulfate 324 mg 01/17/20 12:00 01/24/20 12:35 Ferrous Sulfate 324 Mg Tablet PO 324 mg TIDWM CATHY Administration Folic Acid 0.4 mg 01/17/20 09:00 01/24/20 08:02 Folic Acid 0.4 Mg Tablet PO 0.4 mg DAILY CATHY Administration Hydromorphone HCl 0.5 mg 01/17/20 08:13 01/24/20 00:59 Hydromorphone Hcl Inj (*Crx) 1 Mg/Ml Syr IV PUSH 0.5 mg Q4H PRN Administration Breakthrough Pain Clindamycin/Sodium Chloride 900 mg in 50 mls @ 50 mls/hr 01/16/20 06:00 01/24/20 06:26 Cleocin 900 Mg/Ns 50 Ml IVPB Infused Q8HR CATHY Infusion Aztreonam 1 gm/ Sodium 50 mls @ 100 mls/hr 01/16/20 06:00 10
--- NOTE | 2020-01-24 13:06 | PC.NURSE ---
New telephone order read back received from Dr. Busby to d/c perc drain. Clarification requested from bathhouse attendant r/t approval of RN to complete task as RN is unable to enter specific orders other then in a physician to nurse communication order. Per bathhouse attendant, ok to proceed.
--- NOTE | 2020-01-24 13:06 | PM.IMPN ---
Progress Note: A&P Assessment and Plan (1) Hypokalemia: Code(s): E87.6 - Hypokalemia Status: Resolved (2) Anemia: Qualifiers: Anemia type: other cause Other causes of anemia: acute posthemorrhagic Qualified Code(s): D62 - Acute posthemorrhagic anemia Code(s): D64.9 - Anemia, unspecified Status: Acute Assessment and Plan: Will transfuse as needed. Hb is 9.7 (3) Chronic back pain: Code(s): M54.9 - Dorsalgia, unspecified; G89.29 - Other chronic pain Status: Chronic Assessment and Plan: Pain management. (4) Hyperlipidemia: Code(s): E78.5 - Hyperlipidemia, unspecified Status: Chronic Assessment and Plan: Diet and lifestyle modifications. (5) HTN (hypertension) with goal to be determined: Code(s): I10 - Essential (primary) hypertension Status: Chronic Assessment and Plan: On Hzct and Lisinopril at home. (6) Sepsis: Qualifiers: Sepsis acute organ dysfunction status: unspecified Sepsis type: sepsis due to unspecified organism Qualified Code(s): A41.9 - Sepsis, unspecified organism Code(s): A41.9 - Sepsis, unspecified organism Status: Acute Assessment and Plan: Continue Aztreonam and Clindamycin, as per ID recommendations. transition to oral on saturday and discharge once drain is removed. (7) Postoperative abscess: Code(s): T81.49XA - Infection following a procedure, other surgical site, initial encounter Status: Acute Assessment and Plan: See plan above. Pt had IR drain placement 01/16/20, CT scan 01/20/20 shows abscess still large so pt had subcuteanoius drain only for aspiration, HOT CELL TECHNICIAN rounding, ID rounding, drain can be removed today as per HOT CELL TECHNICIAN as there is little drainage from it. Subjective Date/time seen: 01/24/20 13:06 Interval history: Kit Cleveland is a 34 year old female who presented to the ER w/ reports of vaginal bleeding and foul smelling discharge. She underwent RA-TLH/BS/cysto on 01/04/20 due to AUB and pelvic pain and was found to have endometriosis and interstitial cystitis (pathology benign). Pt was found to have pelvic abcesses. Pt had IR drain placement 01/16/20, CT scan 01/20/20 shows abscess still large so pt had subcutaneous drain for aspiration only. ID and HOT CELL TECHNICIAN rounding see recommendations. Pt states her pelvic pain is better today rates it as a 2/10, yesterday her pain was variable. Ok to discharge on saturday, drain can come out today, repeat cultures look negative. Review of Systems Review of Systems: All systems reviewed & are unremarkable except as noted in HPI and below Exam Narrative: Exam Narrative: Patient tired, but not in any distress LUNGS:Clear lungs HEART: RR S1S2 ABD: obese patient, Soft non tender, IR drain insitu. One drain insitu. Lower extremities: no edema SKIN: nonjaundiced Neuro: grossly intact. Objective Data Vital Signs Vital Signs: Vital Signs - 24 hr 01/23/20 14:00 01/23/20 21:46 01/23/20 22:38 Temperature 37.1 C 36.2 C L Pulse Rate 97 97 88 Respiratory Rate 14 16 20 Blood Pressure 135/79 143/89 H Pulse Oximetry 97 96 97 01/24/20 06:00 Temperature 36.6 C Pulse Rate 97 Respiratory Rate 20 Blood Pressure 144/94 H Pulse Oximetry 98 Intake/Output Intake/Output: Intake & Output 01/21/20 01/22/20 01/23/20 01/24/20 23:59 23:59 23:59 23:59 Intake Total 1590 1770 1999 300 Output Total 1228 5 10 Balance 362 1765 1989 300 Meds/Results Medications: Active Medications Generic Name Dose Route Start Last Admin Trade Name Freq PRN Reason Stop Dose Admin Amitriptyline HCl 50 mg 01/16/20 09:00 01/24/20 12:34 Amitriptyline Hcl 25 Mg Tablet PO 50 mg TID CATHY Administration Amitriptyline HCl 50 mg 01/16/20 21:00 01/23/20 20:35 Amitriptyline Hcl 25 Mg Tablet PO 50 mg HS CATHY Administration Ascorbic Acid 500 mg 01/17/20 09:00 01/24/20 08:02 Ascorbic Acid 500 Mg Table
[2020-01-24] MEDS: NEOMYCIN/POLYMYXIN/BACITRACIN OINTMENT PACKET 1 PACKET (13:21)
[2020-01-24 14:00] VITALS: BP 136/83; PULSE 104; RESP 14; TEMP 35.9; O2SAT 97
[2020-01-24] MEDS: metroNIDAZOLE 250 MG TABLET 500 MG PO ×2 (15:04→21:10)
[2020-01-24 21:09] VITALS: BP 148/85; PULSE 98; RESP 12; TEMP 36.2; O2SAT 97
[2020-01-24] MEDS: CITALOPRAM HYDROBROMIDE 20 MG TABLET 40 MG PO (21:09)
[2020-01-24] MEDS: traZODone HCL 50 MG TABLET 100 MG PO (21:10)
[2020-01-24 23:05] VITALS: PULSE 95; RESP 18; O2SAT 97
[2020-01-25] MEDS: oxyCODONE/ACETAMINOPHEN (*CRX) 5-325 MG TABLET 2 TABLET PO ×3 (00:13→12:09)
[2020-01-25 03:12] VITALS: PULSE 91; RESP 20; O2SAT 98
[2020-01-25 05:14] VITALS: BP 151/90; PULSE 90; RESP 14; TEMP 36.3; O2SAT 96
[2020-01-25 06:00] LABS: Hematocrit 32.5 % (37.0-47.0); Hemoglobin 10.2 g/dL (12.0-15.0); Mean Corpuscular HGB Conc 31.4 g/dl (32-36); Mean Corpuscular Hemoglobin 27.6 pg (26-34); Mean Corpuscular Volume 87.8 fl (80-100); Mean Platelet Volume 8.5 fl (7.4-10.4); Platelet Count Result 844 k/mm3 (150-375); Red Cell Distribution Width 14.6 % (11.5-14.5); White Blood Count 6.8 K/mm3 (4.5-10.0)
[2020-01-25] MEDS: metroNIDAZOLE 250 MG TABLET 500 MG PO ×2 (06:16→13:04)
[2020-01-25 06:40] LABS: Anion Gap 6 mmol/L (8-16); Blood Urea Nitrogen 13 mg/dL (7-17); Calcium 8.7 mg/dL (8.4-10.2); Carbon Dioxide 31 mmol/L (22-30); Chloride 101 mmol/L (98-107); Estimated CRCL calculation 139 ml/min; Estimated Glomerular Filt Rate > 60; Glucose 87 mg/dL (65-105); Potassium 4.7 mmol/L (3.4-5.0); Sodium 138 mmol/L (137-145)
[2020-01-25] MEDS: FERROUS SULFATE 324 MG TABLET PO ×2 (08:21→12:09)
[2020-01-25] MEDS: ASCORBIC ACID 500 MG TABLET PO (08:21)
[2020-01-25] MEDS: FOLIC ACID 0.4 MG TABLET PO (08:21)
[2020-01-25] MEDS: AMITRIPTYLINE HCL 25 MG TABLET 50 MG PO ×2 (08:21→12:09)
[2020-01-25] MEDS: MAGNESIUM OXIDE 400 MG TABLET PO (08:21)
[2020-01-25] MEDS: DOCUSATE SODIUM 100 MG CAPSULE PO (08:21)
[2020-01-25] MEDS: NITROFURANTOIN MONOHYD MACROCR 100 MG CAP PO (08:21)
[2020-01-25] MEDS: clonazePAM (*CRX) 0.5 MG TABLET 1 MG PO (08:23)
--- NOTE | 2020-01-25 10:23 | PM.GYNPNOP ---
PORTRAIT CONSULTANT - A/P Assessment and plan (1) Postoperative abscess: Code(s): T81.49XA - Infection following a procedure, other surgical site, initial encounter Status: Acute Assessment and Plan: - Drain pulled 01/24/20 due to minimal output - Pt transitioned to oral abx (flagyl 500 q8h + levofloxacin 750mg q24h) -- to continue for a total of 14 days - Vitals and labs remained stable on transition to PO - All prescriptions sent to pharmacy - Pt to f/u in clinic in 1 week - Pt to call if any issues arise - Pelvic rest, no heavy lifting, showers only, take meds as prescribed - ER return precautions. Time Spent With Patient Time: Total time spent is greater than 50% in coordination of care (as documented) at patient's floor/unit and/or counseling patient: Time with patient: 15 - 25 minutes PORTRAIT CONSULTANT- PN:Millicent Post-Op Subjective Date/time seen: 01/25/20 10:23 Feeling better since drain came out yesterday. Continues to have mild pelvic pain, relieved with pain meds. No fever or chills. WBC trended down to 6.5 today. H/H stable. Ambulating w/o s/sx of anemia. Using restroom w/o issues. Eating regular diet. Light vaginal spotting; no vaginal discharge. No fever, chills, CP, SOB, cough, N/V, headaches, dizziness or palpitations. Ready to go home today. Interval history: Kit Cleveland is a 34 year old female who presented to the ER w/ reports of vaginal bleeding and foul smelling discharge. She underwent RA-TLH/BS/cysto on 01/04/20 due to AUB and pelvic pain and was found to have endometriosis and interstitial cystitis (pathology benign). Pt was found to have pelvic abcesses. Pt had IR drain placement 01/16/20, CT scan 01/20/20 shows abscess still large so pt had subcutaneous drain for aspiration only. ID and PORTRAIT CONSULTANT rounding see recommendations. Pt states her pelvic pain is better today rates it as a 2/10, yesterday her pain was variable. Ok to discharge on saturday, drain can come out today, repeat cultures look negative. Review of Systems Review of Systems: All systems reviewed & are unremarkable except as noted in HPI and below (HPI) Exam Const: General: cooperative, comfortable, no acute distress and well developed Nutritional Appearance: obese Resp: Effort & Inspection: normal respiratory effort and able to speak in complete sentences Cardio: Rate: regular rate GI: Inspection: incision (healing w/o s/sx of infection) GI Palp: No abdominal tenderness, Yes Soft to palpation and No Guarding due to palpation present (GI) Skin: General skin exam: normal color Neuro: General: patient oriented x3 Psych: Appearance: grossly normal Affect: normal affect Attitude: cooperative Thought process: Normal thought process present Judgement: Good judgement present (Psych) PORTRAIT CONSULTANT - PN: Obj Data Vital Signs Vital Signs: Vital Signs - 24 hr 01/24/20 14:00 01/24/20 21:09 01/24/20 23:05 Temperature 35.9 C L 36.2 C L Pulse Rate 104 H 98 95 Respiratory Rate 14 12 18 Blood Pressure 136/83 148/85 H Pulse Oximetry 97 97 97 01/25/20 03:12 01/25/20 05:14 Temperature 36.3 C L Pulse Rate 91 90 Respiratory Rate 20 14 Blood Pressure 151/90 H Pulse Oximetry 98 96 Intake/Output Intake/Output: Intake & Output 01/22/20 01/23/20 01/24/20 01/25/20 23:59 23:59 23:59 23:59 Intake Total 1770 1999 900 640 Output Total 5 10 900 Balance 1765 1989 900 -260 Meds/Results Medications: Active Medications Generic Name Dose Route Start Last Admin Trade Name Freq PRN Reason Stop Dose Admin Amitriptyline HCl 50 mg 01/16/20 09:00 01/25/20 08:21 Amitriptyline Hcl 25 Mg Tablet PO 50 mg TID CATHY Administration Amitriptyline HCl 50 mg 01/16/20 21:00 01/24/20 21:09 Amitriptyline Hcl 25 Mg Tablet PO 50 mg HS CATHY Administration Ascorbic Acid 500 mg 01/17/20 09:00 01/25/20 08:21 Ascorbic Acid 500 Mg Tablet PO 500 mg DAILY CATHY Administration Bisacodyl 10 mg 01/17/20 10:12 Bisacodyl 10 Mg Suppository REC
--- NOTE | 2020-01-25 14:04 | PM.IMPN ---
Progress Note: A&P Assessment and Plan (1) Hypokalemia: Code(s): E87.6 - Hypokalemia Status: Resolved (2) Anemia: Qualifiers: Anemia type: other cause Other causes of anemia: acute posthemorrhagic Qualified Code(s): D62 - Acute posthemorrhagic anemia Code(s): D64.9 - Anemia, unspecified Status: Acute Assessment and Plan: Will transfuse as needed. Hb is 9.7 (3) Chronic back pain: Code(s): M54.9 - Dorsalgia, unspecified; G89.29 - Other chronic pain Status: Chronic Assessment and Plan: Pain management. (4) Hyperlipidemia: Code(s): E78.5 - Hyperlipidemia, unspecified Status: Chronic Assessment and Plan: Diet and lifestyle modifications. (5) HTN (hypertension) with goal to be determined: Code(s): I10 - Essential (primary) hypertension Status: Chronic Assessment and Plan: On Hzct and Lisinopril at home. (6) Sepsis: Qualifiers: Sepsis acute organ dysfunction status: unspecified Sepsis type: sepsis due to unspecified organism Qualified Code(s): A41.9 - Sepsis, unspecified organism Code(s): A41.9 - Sepsis, unspecified organism Status: Acute Assessment and Plan: Continue Aztreonam and Clindamycin, as per ID recommendations. transition to oral on saturday and discharge once drain is removed. (7) Postoperative abscess: Code(s): T81.49XA - Infection following a procedure, other surgical site, initial encounter Status: Acute Assessment and Plan: See plan above. Pt had IR drain placement 01/16/20, CT scan 01/20/20 shows abscess still large so pt had subcuteanoius drain only for aspiration, RECYCLING OPERATIONS MANAGER rounding, ID rounding, drain can be removed today as per RECYCLING OPERATIONS MANAGER as there is little drainage from it. Kit Cleveland is a 34 year old female who presented to the ER w/ reports of vaginal bleeding and foul smelling discharge. She underwent RA-TLH/BS/cysto on 01/04/20 due to AUB and pelvic pain and was found to have endometriosis and interstitial cystitis (pathology benign). Pt was found to have pelvic abcesses. Pt had IR drain placement 01/16/20, CT scan 01/20/20 shows abscess still large so pt had subcutaneous drain for aspiration only. ID and RECYCLING OPERATIONS MANAGER rounding see recommendations. Pt states her pelvic pain is better today rates it as a 2/10, yesterday her pain was variable. Ok to discharge on saturday, drain can come out today, repeat cultures look negative. today 01/24 patient states feeling much better see was seen by her blast furnace keeper helper the abscess have improved and drain was removed patient was seen by Dr. vela recommended to switch the patient Flagyl 500mg q8 and levofloxacin 750mg qdaily total of 14 days, patient was seen by her blast furnace keeper helper will be discharged home today after receiving her last dose of IV antibiotic, patient will follow-up with blast furnace keeper helper in 1 week and follow her recommendation Subjective Date/time seen: 01/25/20 14:04 Interval history: Kit Cleveland is a 34 year old female who presented to the ER w/ reports of vaginal bleeding and foul smelling discharge. She underwent RA-TLH/BS/cysto on 01/04/20 due to AUB and pelvic pain and was found to have endometriosis and interstitial cystitis (pathology benign). Pt was found to have pelvic abcesses. Pt had IR drain placement 01/16/20, CT scan 01/20/20 shows abscess still large so pt had subcutaneous drain for aspiration only. ID and RECYCLING OPERATIONS MANAGER rounding see recommendations. Pt states her pelvic pain is better today rates it as a 2/10, yesterday her pain was variable. Ok to discharge on saturday, drain can come out today, repeat cultures look negative. today 01/24 patient states feeling much better see was seen by her blast furnace keeper helper the abscess have improved and drain was removed patient was seen by Dr. vela recommended to switch the patient Flagyl 500mg q8 and levofloxacin 750mg qdaily total of 14 days, patient was seen by her blast furnace keeper helper will be discharged ho
--- NOTE | 2020-02-19 10:40 | PM.DS ---
DS: Admitting Diagnosis Admitting Diagnosis Admitting Diagnosis: Sepsis, Post operative abscess, Anemia DS: Discharge Diagnosis Discharge Diagnosis (1) UTI (urinary tract infection): Code(s): N39.0 - Urinary tract infection, site not specified Status: Acute (2) Anemia: Qualifiers: Anemia type: other cause Other causes of anemia: acute posthemorrhagic Qualified Code(s): D62 - Acute posthemorrhagic anemia Code(s): D64.9 - Anemia, unspecified Status: Acute (3) Sepsis: Qualifiers: Sepsis acute organ dysfunction status: unspecified Sepsis type: sepsis due to unspecified organism Qualified Code(s): A41.9 - Sepsis, unspecified organism Code(s): A41.9 - Sepsis, unspecified organism Status: Acute (4) Postoperative abscess: Code(s): T81.49XA - Infection following a procedure, other surgical site, initial encounter Status: Acute DS: Summary Hospital Course Reason for hospitalization: Hospital Course: Patient was admitted with sepsis due to a large post-operative pelvic abscess seen on CT A+P. She had undergone RA-TLH/BS/cystoscopy. She was admitted and started on broad spectrum antibiotics. She was also noted to be anemic and received a blood transfusion of packed red blood cells. IR was consulted and placed a percutaneous drain with significant output. Cultures were sent and grew suspected vaginal bacteria. She was also treated for UTI. She remained afebrile during her stay. When her WBC plateaued, an additional CT A+P was performed and showed a subcutaneous abscess. IR was once again consulted and percutaneously drained the subcutaneous abscess. Her symptoms were stable; no vaginal discharge, vaginal bleeding, pain was stable, no fever/chills/cp/symptoms of anemia/constipation/diarrhea/nausea/vomiting. She was tolerating regular diet and using the restroom normally. Her drain had low output, therefore, it was removed. She was transitioned to oral antibiotics. Her symptoms remained stable, as well as her WBC and she was afebrile. She was discharged home with close follow up in one week. Her discharge instructions included taking medications as prescribed, pelvic rest, no heavy lifting and ER return precautions. Status at Discharge Functional status at discharge: independent ambulation Overall status at discharge: patient is back to baseline Time Spent with Patient Time attestation: Total time spent providing and/or coordinating discharge services: Time spent: Less than 30 minutes Exam Const: General: cooperative, healthy appearing, comfortable and no acute distress Nutritional Appearance: obese Orientation/consciousness: patient oriented x3 Limitations: no limitations Resp: Effort & Inspection: normal respiratory effort and able to speak in complete sentences Auscultation: clear to auscultation bilaterally Cardio: Rate: regular rate GI: Inspection: non-distended and incision (all healing w/o s/sx of infection) GI Palp: Yes abdominal tenderness (appropriate and improved), Yes Soft to palpation and No Guarding due to palpation present (GI) Auscultation: normal bowel sounds : Other: no abnormal discharge or vaginal bleeding noted on pad Skin: General skin exam: normal color Extrem: General: normal to inspection Psych: Appearance: grossly normal Affect: normal affect Attitude: cooperative DS: Data Data Completed and Pending Completed studies during hospitalization: blood counts, CT A+P x2 Procedures/Treatments: IR drainage x2, blood transfusion, IV antibiotics Discharge Plan Discharge Attending physician on discharge: Kirsten Cervantes Consulting providers: Tan Solorio ; Roxann Blanton ; Ernesto Gomez ; Tereza Abel V. ; Samir Ding ; Julieth Galan ; Bill Busby ; Berhane Farrell V. Discharging Clinician: Kirsten Cervantes Anticipated Discharge Date/Time: 01/25/20 18:00 Patient Disposition: Home, Self-Care Activ
== END 2020-01-25 13:10 | disposition home or self-care (01) | DRG 862 ==
LOC: ANHED 21:35 → ANHIMU 22:08 → ANH3MED 01-17 17:13
PROVIDERS: Emergency Medicine; Family Medicine; Nurse Practitioner; Admitting Provider Obstetrics & Gynecology; Emergency Provider Emergency Medicine; PCP Nurse Practitioner Adult Health; Visit Provider Family Medicine
DX: T81.44XA Sepsis following a procedure, initial encounter (principal); A41.9 Sepsis, unspecified organism; D62 Acute posthemorrhagic anemia; N39.0 Urinary tract infection, site not specified; Z68.42 Body mass index [BMI] 45.0-49.9, adult; T81.43XA Infection following a procedure, organ and space surgical site, initial encounter; E87.6 Hypokalemia; E78.5 Hyperlipidemia, unspecified; N73.9 Female pelvic inflammatory disease, unspecified; B96.20 Unspecified Escherichia coli [E. coli] as the cause of diseases classified elsewhere; Z90.710 Acquired absence of both cervix and uterus; F41.8 Other specified anxiety disorders; E66.01 Morbid (severe) obesity due to excess calories; J45.909 Unspecified asthma, uncomplicated; M54.9 Dorsalgia, unspecified
CPT/HCPCS: 10160; 36415; 36430; 74177; 75989; 76942; 80048; 80053; 81001; 83605; 83735; 84132; 84484; 85025; 85027; 85610; 85730; 86140; 86850; 86900; 86901; 86923; 87040; 87070; 87075; 87076; 87077; 87086; 87088; 87185; 87186; 87205; 87491; 87591; 87808; 94660; 96365; 96367; 96368; 96375; 99285; A9270; C1769; J0610; J1170; J1956; J2060; J2270; J2405; J3475; J3480; J7030; J7050; P9016; Q9967